=== PATIENT | female | born 1970 | race African-American/Black ===

== ENCOUNTER 2020-04-08 15:03 | Inpatient (IN) | payer OTHER ==
--- NOTE | 2020-04-08 15:21 | BHS.RME ---
Substance Use & Tx History - Substance Use History Alcohol Substance amount: 6 pack of 24 ounce beer, 1/2 pint Vodka Frequency of use: Daily Substance route: Oral Date of Last Use: 03/31/20 Cocaine-Crack Substance amount: $30 Frequency of use: More than 3 times per week Substance route: Smoking Date of Last Use: 03/30/20 Nicotine Substance amount: one pack Frequency of use: Daily Substance route: Smoking Date of Last Use: 04/08/20 - Last Treatment Date of last treatment: [facility] past 8 days Where was last treatment: Detox Physical/Psych/Mental Status - Behavior General Behavior: Increased activity (restlessness, agitation) Eye Contact: Normal - Cooperativeness Cooperativeness: Cooperative - Thinking Thought Processes: Tight Thought content: Future oriented - Physical Health Problems Is patient presently having any pain?: Yes (chronic nerve pain in both legs) Does patient presently have any injuries (include location): Yes (dog bite posterior left knee tx with antibiotics, has rx) Does patient currently have a fever: No CIWA Nausea/Vomitin-No Nausea/No Vomiting Muscle Tremors: None Anxiety: 0-No Anxiety, at Ease Agitation: 0-Normal Activity Paroxysmal Sweats: No Perspiration Orientation: 0-Oriented Tacttile Disturbances: 1-Very Mild Itch/Numbness (chronic) Auditory Disturbances: 0-None Visual Disturbances: 0-None Headache: 0-None Present CIWA-Ar Total Score: 1
[2020-04-08 17:51] VITALS: BMI 25.0
--- NOTE | 2020-04-08 18:26 | HP ---
CIWA Score Nausea/Vomitin-No Nausea/No Vomiting Muscle Tremors: None Anxiety: 0-No Anxiety, at Ease Agitation: 0-Normal Activity Paroxysmal Sweats: No Perspiration Orientation: 0-Oriented Tacttile Disturbances: 1-Very Mild Itch/Numbness (chronic) Auditory Disturbances: 0-None Visual Disturbances: 0-None Headache: 0-None Present CIWA-Ar Total Score: 1 - Admission Criteria OASAS Guidelines: Admission for Medically Managed Detox: Requires at least one of the followin. CIWA greater than 12 2. Seizures within the past 24 hours 3. Delirium tremens within the past 24 hours 4. Hallucinations within the past 24 hours 5. Acute intervention needed for co occurring medical disorder 6. Acute intervention needed for co occurring psychiatric disorder 7. Severe withdrawal that cannot be handled at a lower level of care (continued vomiting, continued diarrhea, abnormal vital signs) requiring intravenous medication and/or fluids 8. Admitting History and Physical - Past Medical History ...LMP: 03/25/20 - Smoking History Smoking history: Current every day smoker Have you smoked in the past 12 months: Yes Aproximately how many cigarettes per day: 10 Admission ROS [facility] Chief Complaint: HERE FOR REHAB FROM ALCOHOL . S/P DETOX Allergies/Adverse Reactions: Allergies Allergy/AdvReac Type Severity Reaction Status Date / Time No Known Allergies Allergy Verified 04/08/20 17:03 History of Present Illness: HERE FOR ALCOHOL, COCAINE REHAB AFTER DETOX AT [facility]. CLIENT WAS DETOXED FROM 04/01/20 TO 04/08/20 PR. CLIENT REPORTS DAILY ALCOHOL INTAKE AND INTERMITTENT USE OF COCAINE. LAST USE OF BOTH SUBSTANCES ON 03/31/20. 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 DENIES ANY CLEAN TIME IN THE PAST 12 MONTHS. LONGEST CLEAN TIME 8 YEARS RELAPSING IN 2018. CLIENT COVID TEST ON 04/02/20 NEGATIVE. SEE SCANNED DOCUMENTS. LABS APPRECIATED. LIVES ALONE, UNEMPLOYED, PENDING ASSUALT CASE- DV Exam Limitations: No Limitations - Ebola screening Have you traveled outside of the country in the last 21 days: No Have you had contact with anyone from an Ebola affected area: No Have you been sick,other than usual withdrawal symptoms: No Do you have a fever: No - Review of Systems Constitutional: Night Sweats, Changes in sleep EENT: reports: No Symptoms Reported Respiratory: reports: No Symptoms reported Cardiac: reports: No Symptoms Reported GI: reports: Constipated (LAST BM OVER 8 DAYS) : reports: No Symptoms Reported Musculoskeletal: reports: Back Pain (CHRONIC), Neck Pain (CHRONIC) Integumentary: reports: No Symptoms Reported Neuro: reports: No Symptoms reported Endocrine: reports: Other (DM) Hematology: reports: Anemia Psychiatric: reports: Orientated x3 Other Systems: Reviewed and Negative Patient History - Patient Medical History Hx Anemia: Yes Hx Asthma: No Hx Chronic Obstructive Pulmonary Disease (COPD): No Hx Cancer: No Hx Cardiac Disorders: No Hx Congestive Heart Failure: No Hx Hypertension: No Hx Hypercholesterolemia: Yes Hx Pacemaker: No HX Cerebrovascular Accident: No Hx Seizures: No Hx Dementia: No Hx Diabetes: Yes Hx Gastrointestinal Disorders: Yes (GASTRITIS) Hx Liver Disease: Yes (HEPATOMEGALY) Hx Genitourinary Disorders: No Hx Sexually Transmitted Disorders: Yes (CHLYMYDIA, SYPHYLIIS, GONORRHEA) Hx Renal Disease (ESRD): No Hx Thyroid Disease: Yes (HYPOTHYROIDISM) Hx Human Immunodeficiency Virus (HIV): No Hx Hepatitis C: No Hx Depression: Yes Hx Suicide Attempt: Yes (OVERDOSED ON PSYCH MEDICATION 2004, 2008) Hx Bipolar Disorder: Yes Hx Schizophrenia: No Other Medical History: SHIZOAFFECTIVE, - Patient Surgical History Past Surgical History: Yes Hx Neurologic Surgery: No Hx Cataract Extraction: No Hx Cardiac Surgery: No Hx Lung Surgery: No Hx Breast Surgery: No Hx Breast Biopsy: No Hx Abdominal Surgery: Yes (RIGHT INGIUNAL HERNIA REPARI AT 11 WEEKS OLD) Hx Appendectomy: Yes (1983) Hx Cholecystectomy: No Hx Genitourinary Surgery: No Hx Section: No Hx Orthopedic Surgery: Yes Anesthesia Reaction: No - PPD History Previous Implant?: Yes Documented Results: Negative w/o proof Implanted On Prior [facility] Admission?: No Date: 04/01/20 (SEE SCANNED DOCUMENTS) Results: NEG CXR PPD to be Administered?: No - Reproductive History Patient is a Female of Child Bearing Age (11 -55 yrs old): Yes Last Menstrual Period: 03/25/20 Patient : No (NEG UHCG) - Smoking Cessation Smoking history: Current every day smoker Have you smoked in the past 12 months: Yes Aproximately how many cigarettes per day: 10 Cigars Per Day: 0 Hx Chewing Tobacco Use: No Initiated information on smoking cessation: Yes 'Breaking Loose' booklet given: 04/08/20 - Substance & Tx. History Hx Alcohol Use: Yes Hx Substance Use: Yes Substance Use Type: Alcohol, Cocaine Hx Substance Use Treatment: Yes ([facility]) - Substances abused Alcohol Other (specify): BEER Substance route: Oral Frequency: Daily Amount used: 1-6 PACK 24 OZ Age of first use: 29 Date of last use: 03/31/20 Crack Substance route: Smoking Frequency: 3-6 times per week Amount used: $40 Age of first use: 29 Date of last use: 03/31/20 Admission Physical Exam S - Vital Signs Vital Signs: Vital Signs - 24 hr 04/08/20 17:50 Temperature 96.8 F L Pulse Rate 74 Respiratory 16 Rate Blood Pressure 98/58 L - Physical General Appearance: Yes: No Apparent Distress, Appropriately Dressed HEENTM: Yes: EOMI, Normocephalic, Normal Voice, TEODORO (LEFT EYE), Pharynx Normal, Other (MISSING TEETH) Respiratory: Yes: Chest Non-Tender, Lungs Clear, Normal Breath Sounds, No Respiratory Distress, No Accessory Muscle Use Neck: Yes: No masses,lesions,Nodules, Supple, Trachea in good position Breast: Yes: Breasts Symetrical Cardiology: Yes: Regular Rhythm, Regular Rate, S1, S2 Abdominal: Yes: Non Tender, Soft, Protuberent Genitourinary: Yes: Within Normal Limits Back: Yes: Decreased Range of Motion (2/2 PAIN) Musculoskeletal: Yes: full range of Motion, Gait Steady Extremities: Yes: Normal Capillary Refill, Normal Range of Motion, Non-Tender, Pedal Edema (TRACE EDEMA BLE) Neurological: Yes: Fully Oriented, Alert, Motor Strength 5/5 Integumentary: Yes: Dry, Warm Lymphatic: Yes: Within Normal Limits - Diagnostic (1) Alcohol dependence, uncomplicated Current Visit: Yes Status: Chronic (2) Cocaine dependence, uncomplicated Current Visit: Yes Status: Chronic (3) Diabetes Current Visit: Yes Status: Chronic Qualifiers: Diabetes mellitus type: type 2 (4) Neuropathy, diabetic Current Visit: Yes Status: Chronic Qualifiers: Diabetes mellitus type: type 2 (5) Nicotine dependence Current Visit: Yes Status: Chronic Qualifiers: Nicotine product type: cigarettes Substance use status: uncomplicated Qualified Code(s): F17.210 - Nicotine dependence, cigarettes, uncomplicated (6) Bipolar disorder Current Visit: Yes Status: Chronic (7) Schizoaffective disorder Current Visit: Yes Status: Chronic Qualifiers: Schizoaffective disorder type: bipolar Qualified Code(s): F25.0 - Schizoaffective disorder, bipolar type (8) HLD (hyperlipidemia) Current Visit: Yes Status: Chronic (9) Gastritis Current Visit: Yes Status: Chronic (10) Gout Current Visit: Yes Status: Chronic Qualifiers: Gout site: knee Laterality: left (11) Hepatomegaly Current Visit: Yes Status: Chronic (12) Sciatica Current Visit: Yes Status: Chronic Qualifiers: Laterality: right Qualified Code(s): M54.31 - Sciatica, right side (13) Detached retina, right Current Visit: Yes Status: Chronic (14) Cataract, right eye Current Visit: Yes Status: Chronic Cleared for Admission [facility] - Detox or Rehab Detox Regimen/Protocol: Not Applicable Claeared for Rehab Admission: Yes Breathalyzer - Breathalyzer Breathalyzer: 0 Urine Drug Screen - Test Device Lot number: [id number] Expiration date: 10/16/21 - Control Is test valid?: Yes - Results Drug screen NEGATIVE: No Urine drug screen results: BZO-Benzodiazepines Inpatient Rehab Admission - Rehab Decision to Admit Inpatient rehab admission?: Yes - Initial Determination Are CD services needed?: Yes Free of communicable disease: Yes Not in need of hospitalization: Yes - Rehab Admission Criteria Previous failed treatment: Yes Poor recovery environment: Yes Comorbidities: Yes Lacks judgement: No Patient is meeting Inpatient Rehab admission criteria:: Yes
[2020-04-08] MEDS ORDERED: MAG HYDROX/AL HYDROX/SIMETH 30 ML UNIT-DOSE CUP PO PRN (18:39)
[2020-04-08] MEDS ORDERED: MENTHOL/PHENOL 1 EACH UD MM PRN (18:39)
[2020-04-08] MEDS ORDERED: MAGNESIUM CITRATE 300 ML BOTTLE PO PRN (18:39)
[2020-04-08] MEDS ORDERED: guaiFENesin 200 MG/10 ML 10 ML UNIT-DOSE CUPS PO PRN (18:39)
[2020-04-08] MEDS ORDERED: NICOTINE POLACRILEX 2 MG GUM BUC PRN ×2 (18:39→23:54)
[2020-04-08] MEDS ORDERED: LOPERAMIDE HCL 2 MG CAPSULE PO PRN (18:39)
[2020-04-08] MEDS ORDERED: P-EPHED 60MG/TRIPROLIDI 2.5MG TABLET PO PRN (18:39)
[2020-04-08] MEDS ORDERED: MAGNESIUM HYDROX 2400MG/30ML ORAL SUSPENSION 30 ML CUP PO PRN (18:39)
[2020-04-08] MEDS ORDERED: ACETAMINOPHEN 325 MG TABLET (FP) PO PRN (18:39)
[2020-04-08] MEDS: SENNOSIDES 8.6MG TABLET (FP) PO SCH (21:59)
[2020-04-08] MEDS: DOCUSATE SODIUM 100 MG CAPSULE (FP) PO SCH (21:59)
[2020-04-08] MEDS: THIAMINE HCL 100 MG TABLET (FP) PO SCH (21:59)
[2020-04-08] MEDS: ATORVASTATIN CA 20 MG TABLET (FP) PO SCH (21:59)
[2020-04-08] MEDS ORDERED: INSULIN (LEVEMIR) 100 UNITS/ML UNITS SQ SCH (22:00)
[2020-04-08] MEDS ORDERED: PATIENT'S OWN MEDICATION (NON-FORMULARY) (Simvastatin [Simvastatin] 40 MG) PO SCH (22:00)
[2020-04-08] MEDS: MELATONIN 5 MG TABLETS PO SCH (22:05)
[2020-04-08] MEDS: ACAMPROSATE CALCIUM 333 MG TABLET.DR PO SCH (22:43)
[2020-04-08] MEDS: AMOX TR/POT CLAV 875MG/125MG TABLETS (FP) PO SCH (22:43)
[2020-04-09] MEDS: ACAMPROSATE CALCIUM 333 MG TABLET.DR PO SCH ×3 (07:10→21:34)
[2020-04-09] MEDS: metFORMIN HCL 500 MG TABLET (FP) PO SCH ×3 (07:10→16:47)
[2020-04-09] MEDS: hydrOXYzine PAMOATE 25 MG CAPSULE (FP) PO SCH ×6 (07:11→21:30)
[2020-04-09] MEDS: DOCUSATE SODIUM 100 MG CAPSULE (FP) PO SCH ×3 (07:11→21:31)
[2020-04-09] MEDS ORDERED: PT OWN MED DRAWER 7, Y5N ONE ×4 (08:49→19:13)
[2020-04-09] MEDS: ASPIRIN 81 MG CHEWABLE TABLETS PO SCH (09:38)
[2020-04-09] MEDS: AMOX TR/POT CLAV 875MG/125MG TABLETS (FP) PO SCH ×2 (09:38→21:32)
[2020-04-09] MEDS: CALCIUM 250MG/VIT-D 125 UNITS 1 COMBO TABLET PO SCH (09:39)
[2020-04-09] MEDS: PRENATAL VITAMINS W/ FOLIC ACID TABLET (FP) PO SCH (09:39)
[2020-04-09] MEDS: PANTOPRAZOLE 40 MG TABLET PO SCH (09:40)
[2020-04-09] MEDS ORDERED: NICOTINE 7 MG/24 HOURS TOPICAL PATCH TD SCH (10:00)
[2020-04-09] MEDS ORDERED: NICOTINE 14 MG/24 HOURS TOPICAL PATCH TD SCH (10:00)
--- NOTE | 2020-04-09 10:58 | EKG ---
Test Reason : Blood Pressure : / mmHG Vent. Rate : 068 BPM Atrial Rate : 068 BPM P-R Int : 148 ms QRS Dur : 084 ms QT Int : 396 ms P-R-T Axes : 073 035 041 degrees QTc Int : 421 ms NORMAL SINUS RHYTHM SEPTAL INFARCT , AGE UNDETERMINED ABNORMAL ECG NO PREVIOUS ECGS AVAILABLE Confirmed by MD Maggy, Roni ([id number]) on 04/09/2020 10:58:08 AM Referred By: Confirmed By:Roni Winter MD
[2020-04-09] MEDS: COLCHICINE 0.6 MG TAB PO SCH (11:00)
[2020-04-09] MEDS ORDERED: GABAPENTIN 100 MG CAPSULE PO SCH (14:00)
--- NOTE | 2020-04-09 15:18 | PN ---
BHS Progress Note Note: Patient stated that she is on Gabapentin 600m BID for neuropathic pain. Confirmed with [facility].
[2020-04-09] MEDS: THIAMINE HCL 100 MG TABLET (FP) PO SCH (21:30)
[2020-04-09] MEDS: ATORVASTATIN CA 20 MG TABLET (FP) PO SCH (21:31)
[2020-04-09] MEDS: SENNOSIDES 8.6MG TABLET (FP) PO SCH (21:31)
[2020-04-09] MEDS: BACITRACIN 0.9 GM PACKET TP SCH (21:33)
[2020-04-09] MEDS: MELATONIN 5 MG TABLETS PO SCH (21:37)
[2020-04-09] MEDS: GABAPENTIN 300 MG CAPSULE PO SCH (21:38)
[2020-04-09] MEDS ORDERED: INSULIN (NOVOLOG) ASPART 100 UNITS/ML 10ML VIAL ONE (23:07)
[2020-04-09] MEDS ORDERED: INSULIN (LEVEMIR) 100 UNITS/ML UNITS SQ ONE (23:07)
[2020-04-09] MEDS: INSULIN (LEVEMIR) 100 UNITS/ML UNITS SQ SCH (23:39)
[2020-04-10] MEDS: DOCUSATE SODIUM 100 MG CAPSULE (FP) PO SCH ×3 (06:39→21:16)
[2020-04-10] MEDS: metFORMIN HCL 500 MG TABLET (FP) PO SCH ×2 (06:39→16:48)
[2020-04-10] MEDS: ACAMPROSATE CALCIUM 333 MG TABLET.DR PO SCH ×3 (06:39→21:21)
[2020-04-10] MEDS: hydrOXYzine PAMOATE 25 MG CAPSULE (FP) PO SCH ×5 (06:39→21:16)
[2020-04-10] MEDS: ASPIRIN 81 MG CHEWABLE TABLETS PO SCH (09:36)
[2020-04-10] MEDS: PANTOPRAZOLE 40 MG TABLET PO SCH (09:37)
[2020-04-10] MEDS: GABAPENTIN 300 MG CAPSULE PO SCH ×2 (09:37→21:16)
[2020-04-10] MEDS: AMOX TR/POT CLAV 875MG/125MG TABLETS (FP) PO SCH ×2 (09:37→21:20)
[2020-04-10] MEDS: COLCHICINE 0.6 MG TAB PO SCH (09:38)
[2020-04-10] MEDS: CALCIUM 250MG/VIT-D 125 UNITS 1 COMBO TABLET PO SCH (09:38)
[2020-04-10] MEDS: BACITRACIN 0.9 GM PACKET TP SCH ×2 (09:38→21:21)
[2020-04-10] MEDS: PRENATAL VITAMINS W/ FOLIC ACID TABLET (FP) PO SCH (09:39)
[2020-04-10] MEDS ORDERED: PT OWN MED DRAWER 7, Y5N ONE ×5 (13:16→23:23)
--- NOTE | 2020-04-10 14:41 | CONSULT ---
[facility] Psychiatric Consult - Data Date of interview: 04/10/20 Admission source: [facility] Identifying data: Ms Dutta is a 49 years old single Black female, mothr of a 27 years old daughter, unemployed receiving public assistance, living in [facility] referred from [facility] on 04/08/20 for inpatient rehabilitation treatment for alcohol and cocaine Substance Abuse History: Reports history of alcohol and crack cocaine use. Refer to addiction counselor's summary for further information Medical History: Significant for anemia, dyslipidemia, gastritis, hypothyroidism, history of treatment for chlamydia, syphilis, gonorrhea, appendectomy in 1983 and right inguinal hernia repair at 9 weeks old. Psychiatric History: This is patient's first admission to this facility. She reports that her first psychiatric contact occured in 1996 when she was diagnosed with MDD with psychotic features after evaluation by a psychiatrist she saw through her employer [employer]. She said that she did not follow through. In 2000, she was diagnosed with Bipolar/Schizophrenia by a psychiatrist at [facility]/ at [address] [place] [address] between & [facility] in [facility]. She said that she was tried on different medications including Depakote, Risperdal, Zyprexa etc. Reports two previous psychiatric hospitalizations at [facility] in 2004 for a suicidal attempt via overdose and 2008 at [facility] for psychosis. She is not currently affiliated with any OPD care.Her last psychiaric treatment was during her recent admission to detox at [facility] facility. She was discharged on [place] 150 mg/qid, Latuda 20 mg/hs, Remeron 15 mg/hs. Reports one pevious suicidal attempt via taking medications as mentioned before. [facility], denies experiencing psychotic, manic symptoms, S/H ideations. However, she is somewhat irritable, reports feeling depressedand sleeping poorly Mental Status Exam - Mental Status Exam Alert and Oriented to: Time, Place, Person Cognitive Function: Fair Patient Appearance: Well Groomed Mood: Depressed, Irritable Affect: Appropriate Patient Behavior: Cooperative Speech Pattern: Clear Voice Loudness: Normal Thought Process: Intact Hallucinations: Denies Suicidal Ideation: Denies Homicidal Ideation: Denies Insight/Judgement: Fair Sleep: Poorly Appetite: Good Muscle strength/Tone: Normal Gait/Station: Normal Psychiatric Findings - Problem List ([place] 1, 2,3) (1) Bipolar disorder Current Visit: Yes Status: Chronic (2) Schizoaffective disorder Current Visit: Yes Status: Ruled-out (3) Substance induced mood disorder Current Visit: Yes Status: Acute (4) Substance-induced sleep disorder Current Visit: Yes Status: Acute (5) Alcohol dependence Current Visit: Yes Status: Acute (6) Cocaine dependence Current Visit: Yes Status: Acute (7) Nicotine dependence Current Visit: Yes Status: Chronic Qualifiers: Nicotine product type: cigarettes Substance use status: uncomplicated Qualified Code(s): F17.210 - Nicotine dependence, cigarettes, uncomplicated (8) Diabetes Current Visit: Yes Status: Chronic Qualifiers: Diabetes mellitus type: type 2 (9) Gastritis Current Visit: Yes Status: Chronic (10) Gout Current Visit: Yes Status: Chronic Qualifiers: Gout site: knee Laterality: left (11) HLD (hyperlipidemia) Current Visit: Yes Status: Chronic (12) Neuropathy, diabetic Current Visit: Yes Status: Chronic Qualifiers: Diabetes mellitus type: type 2 (13) Sciatica Current Visit: Yes Status: Chronic Qualifiers: Laterality: right Qualified Code(s): M54.31 - Sciatica, right side (14) Cataract, right eye Current Visit: Yes Status: Chronic (15) Detached retina, right Current Visit: Yes Status: Chronic - Initial Treatment Plan Initial Treatment Plan: 1) Continue Latuda 20 mg po HS and Remeron 15 mg po HS. 2) Start [place] 300 mg o BID. 3) [place] serum leval on 04/11/20. 4) Continue inpatient rehabilitation
[2020-04-10] MEDS: LURASIDONE HCL 20 MG TABLET PO SCH (16:03)
[2020-04-10] MEDS: IBUPROFEN 400 MG TABLET (FP) PO PRN (16:50)
[2020-04-10] MEDS: INSULIN SLIDING SCALE (NOVOLOG) 1 VIAL SQ SCH ×2 (16:56→21:26)
[2020-04-10] MEDS ORDERED: INSULIN (NOVOLOG) ASPART 100 UNITS/ML 10ML VIAL ONE ×2 (16:56→23:21)
[2020-04-10] MEDS: THIAMINE HCL 100 MG TABLET (FP) PO SCH (21:15)
[2020-04-10] MEDS: SENNOSIDES 8.6MG TABLET (FP) PO SCH (21:16)
[2020-04-10] MEDS: ATORVASTATIN CA 20 MG TABLET (FP) PO SCH (21:16)
[2020-04-10] MEDS: MIRTAZAPINE 15 MG TABLET (FP) PO SCH (21:18)
[2020-04-10] MEDS: MELATONIN 5 MG TABLETS PO SCH (21:19)
[2020-04-10] MEDS: LITHIUM CARBONATE 300 MG CAPSULE (FP) PO SCH (21:20)
[2020-04-10] MEDS: INSULIN (LEVEMIR) 100 UNITS/ML UNITS SQ SCH (21:23)
[2020-04-11] MEDS ORDERED: PT OWN MED DRAWER 7, Y5N ONE ×4 (04:12→20:12)
[2020-04-11] MEDS: ACAMPROSATE CALCIUM 333 MG TABLET.DR PO SCH ×3 (06:34→21:11)
[2020-04-11] MEDS: metFORMIN HCL 500 MG TABLET (FP) PO SCH ×2 (06:35→16:43)
[2020-04-11] MEDS: INSULIN SLIDING SCALE (NOVOLOG) 1 VIAL SQ SCH ×4 (06:35→21:17)
[2020-04-11] MEDS: DOCUSATE SODIUM 100 MG CAPSULE (FP) PO SCH ×3 (06:35→21:10)
[2020-04-11] MEDS: hydrOXYzine PAMOATE 25 MG CAPSULE (FP) PO SCH ×5 (06:35→21:10)
[2020-04-11] MEDS: ASPIRIN 81 MG CHEWABLE TABLETS PO SCH (09:47)
[2020-04-11] MEDS: GABAPENTIN 300 MG CAPSULE PO SCH (09:47)
[2020-04-11] MEDS: PANTOPRAZOLE 40 MG TABLET PO SCH (09:47)
[2020-04-11] MEDS: LITHIUM CARBONATE 300 MG CAPSULE (FP) PO SCH ×2 (09:48→21:10)
[2020-04-11] MEDS: CALCIUM 250MG/VIT-D 125 UNITS 1 COMBO TABLET PO SCH (09:48)
[2020-04-11] MEDS: LURASIDONE HCL 20 MG TABLET PO SCH (09:48)
[2020-04-11] MEDS: PRENATAL VITAMINS W/ FOLIC ACID TABLET (FP) PO SCH (09:49)
[2020-04-11] MEDS: AMOX TR/POT CLAV 875MG/125MG TABLETS (FP) PO SCH ×2 (09:49→21:12)
[2020-04-11] MEDS: COLCHICINE 0.6 MG TAB PO SCH (09:49)
[2020-04-11] MEDS: BACITRACIN 0.9 GM PACKET TP SCH ×2 (09:49→21:11)
[2020-04-11 10:31] LABS: BASO % 1.6 % (0-2.0); EOS % 3.3 % (0-4.5); HEMATOCRIT 35.1 % (32.4-45.2); HEMOGLOBIN 11.8 GM/dL (10.7-15.3); LYMPH % 38.3 % (8-40); MCH 32.8 pg (25.7-33.7); MCHC 33.7 g/dl (32.0-36.0); MEAN CELL VOLUME 97.4 fl (80-96); MEAN PLT VOLUME 8.6 fl (7.5-11.1); MONO % 10.8 % (3.8-10.2); PLATELET COUNT 354 K/MM3 (134-434); RDW 12.1 % (11.6-15.6); WHITE BLOOD COUNT 5.5 K/mm3 (4.0-10.0)
[2020-04-11 10:33] LABS: EPI CELLS 10 /uL (0-25.1); HYALINE CASTS 2 /uL (0-3.1); URINE APPEARANCE CLEAR; URINE BACTERIA 24 /uL (0-1359); URINE BILIRUBIN NEGATIVE (NEGATIVE); URINE COLOR YELLOW; URINE GLUCOSE (UA) NEGATIVE (NEGATIVE); URINE KETONE NEGATIVE (NEGATIVE); URINE LEUK ESTERASE 2+ (NEGATIVE); URINE NITRITE NEGATIVE (NEGATIVE); URINE PROTEIN NEGATIVE (NEGATIVE); URINE RBC 33 /uL (0-23.9); URINE UROBILINOGEN 0.2 mg/dL (0.2-1.0); URINE WBC 215 /uL (0-25.8)
[2020-04-11 10:36] LABS: ALBUMIN 3.3 g/dl (3.4-5.0); BILIRUBIN,TOTAL 0.2 mg/dL (0.2-1); BLOOD UREA NITROGEN 15.5 mg/dL (7-18); CALCIUM 9.6 mg/dL (8.5-10.1); CREATININE 0.6 mg/dL (0.55-1.3); POTASSIUM 4.5 mmol/L (3.5-5.1); TOT PROT 7.1 g/dl (6.4-8.2)
[2020-04-11] MEDS ORDERED: INSULIN (NOVOLOG) ASPART 100 UNITS/ML 10ML VIAL ONE ×2 (16:46→22:59)
[2020-04-11] MEDS: IBUPROFEN 400 MG TABLET (FP) PO PRN (16:48)
[2020-04-11] MEDS ORDERED: GABAPENTIN 300 MG CAPSULE PO SCH (18:15)
[2020-04-11] MEDS: THIAMINE HCL 100 MG TABLET (FP) PO SCH (21:10)
[2020-04-11] MEDS: SENNOSIDES 8.6MG TABLET (FP) PO SCH (21:10)
[2020-04-11] MEDS: ATORVASTATIN CA 20 MG TABLET (FP) PO SCH (21:10)
[2020-04-11] MEDS: MIRTAZAPINE 15 MG TABLET (FP) PO SCH (21:10)
[2020-04-11] MEDS: MELATONIN 5 MG TABLETS PO SCH (21:12)
[2020-04-11] MEDS: INSULIN (LEVEMIR) 100 UNITS/ML UNITS SQ SCH (21:14)
[2020-04-12] MEDS: INSULIN SLIDING SCALE (NOVOLOG) 1 VIAL SQ SCH ×4 (06:46→21:38)
[2020-04-12] MEDS: metFORMIN HCL 500 MG TABLET (FP) PO SCH ×2 (06:47→16:38)
[2020-04-12] MEDS: ACAMPROSATE CALCIUM 333 MG TABLET.DR PO SCH ×3 (06:47→21:37)
[2020-04-12] MEDS: DOCUSATE SODIUM 100 MG CAPSULE (FP) PO SCH ×3 (06:47→21:30)
[2020-04-12] MEDS: hydrOXYzine PAMOATE 25 MG CAPSULE (FP) PO SCH ×5 (06:47→21:31)
[2020-04-12] MEDS: ASPIRIN 81 MG CHEWABLE TABLETS PO SCH (09:46)
[2020-04-12] MEDS: BACITRACIN 0.9 GM PACKET TP SCH ×2 (09:47→22:19)
[2020-04-12] MEDS: LITHIUM CARBONATE 300 MG CAPSULE (FP) PO SCH ×2 (09:48→21:37)
[2020-04-12] MEDS: COLCHICINE 0.6 MG TAB PO SCH (09:48)
[2020-04-12] MEDS: LURASIDONE HCL 20 MG TABLET PO SCH (09:48)
[2020-04-12] MEDS: PANTOPRAZOLE 40 MG TABLET PO SCH (09:49)
[2020-04-12] MEDS: CALCIUM 250MG/VIT-D 125 UNITS 1 COMBO TABLET PO SCH (09:49)
[2020-04-12] MEDS: PRENATAL VITAMINS W/ FOLIC ACID TABLET (FP) PO SCH (09:49)
[2020-04-12] MEDS ORDERED: GABAPENTIN 300 MG CAPSULE PO SCH (10:00)
[2020-04-12] MEDS ORDERED: BISACODYL 5 MG TABLET.DR (FP) PO PRN (10:28)
--- NOTE | 2020-04-12 10:34 | PN ---
[facility] Progress Note Note: Patient requests to have Bisocdyl PO PRN for relief of constipation. Patient already prescribed Colace and Senna for relief of constipation; however, she reports history of chronic constipation and that she has consulted GI specialist in past and that she takes all three aforementioned medications on outpatient basis. She denies abdominal pain. Patient advised to increase daily oral water intake and to consult [facility] / GI Specialist again for follow-up evaluation for chronic constipation after discharge from Rehab. Patient verbalized understanding of recommendation. Devante Chawla NP
--- NOTE | 2020-04-12 11:02 | PN ---
[facility] Progress Note Note: Results of UA collected on 04/11/2020 noted. Leuk. Esterase: 2+ Blood: 1+ Nitrate: Negative WBC: 215 RBC: 33 Patient denies any unusual urinary complaints (burning, pain, frequency, urgency, hesitancy, visualization of blood in urine). Will re-check UA tomorrow AM to see if any change. Patient advised to increase daily oral water intake in interim. Devante Chawla NP
[2020-04-12] MEDS ORDERED: PT OWN MED DRAWER 7, Y5N ONE ×3 (16:37→22:23)
[2020-04-12] MEDS ORDERED: INSULIN (NOVOLOG) ASPART 100 UNITS/ML 10ML VIAL ONE (16:38)
[2020-04-12 17:44] LABS: EPI CELLS 8 /uL (0-25.1); HYALINE CASTS 0 /uL (0-3.1); URINE APPEARANCE CLOUDY; URINE BACTERIA 11 /uL (0-1359); URINE BILIRUBIN NEGATIVE (NEGATIVE); URINE COLOR YELLOW; URINE GLUCOSE (UA) TRACE (NEGATIVE); URINE KETONE NEGATIVE (NEGATIVE); URINE LEUK ESTERASE TRACE (NEGATIVE); URINE NITRITE NEGATIVE (NEGATIVE); URINE PROTEIN NEGATIVE (NEGATIVE); URINE RBC 1 /uL (0-23.9); URINE UROBILINOGEN 0.2 mg/dL (0.2-1.0); URINE WBC 24 /uL (0-25.8)
[2020-04-12] MEDS: GABAPENTIN 300 MG CAPSULE PO SCH (18:38)
[2020-04-12] MEDS: ATORVASTATIN CA 20 MG TABLET (FP) PO SCH (21:31)
[2020-04-12] MEDS: SENNOSIDES 8.6MG TABLET (FP) PO SCH (21:31)
[2020-04-12] MEDS: INSULIN (LEVEMIR) 100 UNITS/ML UNITS SQ SCH (21:31)
[2020-04-12] MEDS: MIRTAZAPINE 15 MG TABLET (FP) PO SCH (21:31)
[2020-04-12] MEDS: MELATONIN 5 MG TABLETS PO SCH (21:38)
[2020-04-12] MEDS: THIAMINE HCL 100 MG TABLET (FP) PO SCH (22:19)
[2020-04-13] MEDS: GABAPENTIN 300 MG CAPSULE PO SCH ×2 (06:51→18:05)
[2020-04-13] MEDS: DOCUSATE SODIUM 100 MG CAPSULE (FP) PO SCH ×3 (06:51→21:54)
[2020-04-13] MEDS: metFORMIN HCL 500 MG TABLET (FP) PO SCH ×2 (06:51→17:04)
[2020-04-13] MEDS: ACAMPROSATE CALCIUM 333 MG TABLET.DR PO SCH ×3 (06:51→21:54)
[2020-04-13] MEDS: hydrOXYzine PAMOATE 25 MG CAPSULE (FP) PO SCH ×5 (06:51→21:58)
[2020-04-13] MEDS: INSULIN SLIDING SCALE (NOVOLOG) 1 VIAL SQ SCH ×4 (06:54→22:00)
[2020-04-13] MEDS ORDERED: INSULIN (NOVOLOG) ASPART 100 UNITS/ML 10ML VIAL ONE ×5 (06:56→22:01)
[2020-04-13] MEDS: BISACODYL 5 MG TABLET.DR (FP) PO PRN (07:35)
[2020-04-13] MEDS ORDERED: PT OWN MED DRAWER 7, Y5N ONE ×2 (08:14→11:29)
[2020-04-13] MEDS: ASPIRIN 81 MG CHEWABLE TABLETS PO SCH (09:56)
[2020-04-13] MEDS: BACITRACIN 0.9 GM PACKET TP SCH ×2 (09:56→22:56)
[2020-04-13] MEDS: COLCHICINE 0.6 MG TAB PO SCH (09:59)
[2020-04-13] MEDS: CALCIUM 250MG/VIT-D 125 UNITS 1 COMBO TABLET PO SCH (09:59)
[2020-04-13] MEDS: LURASIDONE HCL 20 MG TABLET PO SCH (09:59)
[2020-04-13] MEDS: PRENATAL VITAMINS W/ FOLIC ACID TABLET (FP) PO SCH (10:00)
[2020-04-13] MEDS: PANTOPRAZOLE 40 MG TABLET PO SCH (10:00)
[2020-04-13] MEDS: LITHIUM CARBONATE 300 MG CAPSULE (FP) PO SCH ×2 (10:00→21:59)
[2020-04-13] MEDS: INSULIN (LEVEMIR) 100 UNITS/ML UNITS SQ SCH (21:52)
[2020-04-13] MEDS: THIAMINE HCL 100 MG TABLET (FP) PO SCH (21:54)
[2020-04-13] MEDS: SENNOSIDES 8.6MG TABLET (FP) PO SCH (21:54)
[2020-04-13] MEDS: ATORVASTATIN CA 20 MG TABLET (FP) PO SCH (21:54)
[2020-04-13] MEDS: MIRTAZAPINE 15 MG TABLET (FP) PO SCH (21:55)
[2020-04-13] MEDS: MELATONIN 5 MG TABLETS PO SCH (21:55)
[2020-04-14] MEDS: GABAPENTIN 300 MG CAPSULE PO SCH ×2 (07:17→18:15)
[2020-04-14] MEDS: metFORMIN HCL 500 MG TABLET (FP) PO SCH ×2 (07:17→16:35)
[2020-04-14] MEDS: hydrOXYzine PAMOATE 25 MG CAPSULE (FP) PO SCH ×2 (07:18→10:09)
[2020-04-14] MEDS: DOCUSATE SODIUM 100 MG CAPSULE (FP) PO SCH ×3 (07:18→21:22)
[2020-04-14] MEDS: ACAMPROSATE CALCIUM 333 MG TABLET.DR PO SCH (07:19)
[2020-04-14] MEDS: BISACODYL 5 MG TABLET.DR (FP) PO PRN ×2 (07:19→21:23)
[2020-04-14] MEDS: INSULIN SLIDING SCALE (NOVOLOG) 1 VIAL SQ SCH ×4 (07:19→21:26)
[2020-04-14] MEDS ORDERED: PT OWN MED DRAWER 7, Y5N ONE (08:22)
[2020-04-14] MEDS: ASPIRIN 81 MG CHEWABLE TABLETS PO SCH (10:09)
[2020-04-14] MEDS: PRENATAL VITAMINS W/ FOLIC ACID TABLET (FP) PO SCH (10:09)
[2020-04-14] MEDS: PANTOPRAZOLE 40 MG TABLET PO SCH (10:09)
[2020-04-14] MEDS: BACITRACIN 0.9 GM PACKET TP SCH ×2 (10:10→21:22)
[2020-04-14] MEDS: COLCHICINE 0.6 MG TAB PO SCH (10:10)
[2020-04-14] MEDS: CALCIUM 250MG/VIT-D 125 UNITS 1 COMBO TABLET PO SCH (10:11)
[2020-04-14] MEDS: LITHIUM CARBONATE 300 MG CAPSULE (FP) PO SCH ×2 (10:11→21:24)
[2020-04-14] MEDS: LURASIDONE HCL 20 MG TABLET PO SCH (10:12)
--- NOTE | 2020-04-14 11:38 | PN ---
[facility] Progress Note Note: Vital Signs Temperature 97.6 F 04/14/20 07:07 Pulse Rate 67 04/14/20 07:07 Respiratory Rate 16 04/14/20 07:07 Blood Pressure 121/77 04/14/20 07:07 O2 Sat by Pulse Oximetry (%) 100 04/14/20 07:07 Laboratory Tests 04/08/20 04/08/20 04/09/20 17:08 21:58 06:55 WBC RBC Hgb Hct MCV MCH MCHC RDW Plt Count MPV Absolute Neuts (auto) Neutrophils % Lymphocytes % Monocytes % Eosinophils % Basophils % Nucleated RBC % Sodium Potassium Chloride Carbon Dioxide Anion Gap BUN Creatinine Est GFR (CKD-EPI)AfAm Est GFR (CKD-EPI)NonAf POC Glucometer 319 50 Random Glucose Calcium Total Bilirubin AST ALT Alkaline Phosphatase Total Protein Albumin Urine Color Urine Appearance Urine pH Ur Specific [place] Urine Protein Urine Glucose (UA) Urine Ketones Urine Blood Urine Nitrite Urine Bilirubin Urine Urobilinogen Ur Leukocyte Esterase Urine WBC (Auto) Urine RBC (Auto) Urine Casts (Auto) U Epithel Cells (Auto) Urine Bacteria (Auto) POC Urine HCG, Qual Negative [place] Syphilis Serology Hep C Ab Diagnostic HIV Ag/Ab Combo Qual HIV-1 Antibody HIV Ag/Ab Interpret HIV-2 Antibody HIV 1&2 Ag/Ab, 4th Gen HIV 1&2 Ab Final Interp 04/09/20 04/09/20 04/09/20 07:00 07:43 08:00 WBC RBC Hgb Hct MCV MCH MCHC RDW Plt Count MPV Absolute Neuts (auto) Neutrophils % Lymphocytes % Monocytes % Eosinophils % Basophils % Nucleated RBC % Sodium Potassium Chloride Carbon Dioxide Anion Gap BUN Creatinine Est GFR (CKD-EPI)AfAm Est GFR (CKD-EPI)NonAf POC Glucometer 177 Random Glucose Calcium Total Bilirubin AST ALT Alkaline Phosphatase Total Protein Albumin Urine Color Urine Appearance Urine pH Ur Specific [place] Urine Protein Urine Glucose (UA) Urine Ketones Urine Blood Urine Nitrite Urine Bilirubin Urine Urobilinogen Ur Leukocyte Esterase Urine WBC (Auto) Urine RBC (Auto) Urine Casts (Auto) U Epithel Cells (Auto) Urine Bacteria (Auto) POC Urine HCG, Qual [place] Syphilis Serology Hep C Ab Diagnostic HIV Ag/Ab Combo Qual Negative HIV-1 Antibody Cancelled HIV Ag/Ab Interpret Cancelled HIV-2 Antibody Cancelled HIV 1&2 Ag/Ab, 4th Gen Cancelled HIV 1&2 Ab Final Interp Cancelled 04/09/20 04/09/20 04/09/20 11:47 16:45 21:36 WBC RBC Hgb Hct MCV MCH MCHC RDW Plt Count MPV Absolute Neuts (auto) Neutrophils % Lymphocytes % Monocytes % Eosinophils % Basophils % Nucleated RBC % Sodium Potassium Chloride Carbon Dioxide Anion Gap BUN Creatinine Est GFR (CKD-EPI)AfAm Est GFR (CKD-EPI)NonAf POC Glucometer 187 186 266 Random Glucose Calcium Total Bilirubin AST ALT Alkaline Phosphatase Total Protein Albumin Urine Color Urine Appearance Urine pH Ur Specific [place] Urine Protein Urine Glucose (UA) Urine Ketones Urine Blood Urine Nitrite Urine Bilirubin Urine Urobilinogen Ur Leukocyte Esterase Urine WBC (Auto) Urine RBC (Auto) Urine Casts (Auto) U Epithel Cells (Auto) Urine Bacteria (Auto) POC Urine HCG, Qual [place] Syphilis Serology Hep C Ab Diagnostic HIV Ag/Ab Combo Qual HIV-1 Antibody HIV Ag/Ab Interpret HIV-2 Antibody HIV 1&2 Ag/Ab, 4th Gen HIV 1&2 Ab Final Interp 04/10/20 04/10/20 04/10/20 06:38 08:00 08:00 WBC RBC Hgb Hct MCV MCH MCHC RDW Plt Count MPV Absolute Neuts (auto) Neutrophils % Lymphocytes % Monocytes % Eosinophils % Basophils % Nucleated RBC % Sodium Potassium Chloride Carbon Dioxide Anion Gap BUN Creatinine Est GFR (CKD-EPI)AfAm Est GFR (CKD-EPI)NonAf POC Glucometer 112 Random Glucose Calcium Total Bilirubin AST ALT Alkaline Phosphatase Total Protein Albumin Urine Color Urine Appearance Urine pH Ur Specific [place] Urine Protein Urine Glucose (UA) Urine Ketones Urine Blood Urine Nitrite Urine Bilirubin Urine Urobilinogen Ur Leukocyte Esterase Urine WBC (Auto) Urine RBC (Auto) Urine Casts (Auto) U Epithel Cells (Auto) Urine Bacteria (Auto) POC Urine HCG, Qual [place] Syphilis Serology Non-reactive Hep C Ab Diagnostic 0.1 HIV Ag/Ab Combo Qual HIV-1 Antibody HIV Ag/Ab Interpret HIV-2 Antibody HIV 1&2 Ag/Ab, 4th Gen HIV 1&2 Ab Final Interp 04/10/20 04/10/20 04/10/20 11:54 16:47 21:24 WBC RBC Hgb Hct MCV MCH MCHC RDW Plt Count MPV Absolute Neuts (auto) Neutrophils % Lymphocytes % Monocytes % Eosinophils % Basophils % Nucleated RBC % Sodium Potassium Chloride Carbon Dioxide Anion Gap BUN Creatinine Est GFR (CKD-EPI)AfAm Est GFR (CKD-EPI)NonAf POC Glucometer 162 227 204 Random Glucose Calcium Total Bilirubin AST ALT Alkaline Phosphatase Total Protein Albumin Urine Color Urine Appearance Urine pH Ur Specific [place] Urine Protein Urine Glucose (UA) Urine Ketones Urine Blood Urine Nitrite Urine Bilirubin Urine Urobilinogen Ur Leukocyte Esterase Urine WBC (Auto) Urine RBC (Auto) Urine Casts (Auto) U Epithel Cells (Auto) Urine Bacteria (Auto) POC Urine HCG, Qual [place] Syphilis Serology Hep C Ab Diagnostic HIV Ag/Ab Combo Qual HIV-1 Antibody HIV Ag/Ab Interpret HIV-2 Antibody HIV 1&2 Ag/Ab, 4th Gen HIV 1&2 Ab Final Interp 04/11/20 04/11/20 04/11/20 06:33 07:35 07:35 WBC 5.5 RBC 3.60 Hgb 11.8 Hct 35.1 MCV 97.4 H MCH 32.8 MCHC 33.7 RDW 12.1 Plt Count 354 MPV 8.6 Absolute Neuts (auto) 2.5 Neutrophils % 46.0 Lymphocytes % 38.3 Monocytes % 10.8 H Eosinophils % 3.3 Basophils % 1.6 Nucleated RBC % 0 Sodium 138 Potassium 4.5 Chloride 106 Carbon Dioxide 28 Anion Gap 5 L BUN 15.5 Creatinine 0.6 Est GFR (CKD-EPI)AfAm 124.92 Est GFR (CKD-EPI)NonAf 107.78 POC Glucometer 96 Random Glucose 84 Calcium 9.6 Total Bilirubin 0.2 AST 25 ALT 33 Alkaline Phosphatase 57 Total Protein 7.1 Albumin 3.3 L Urine Color Urine Appearance Urine pH Ur Specific [place] Urine Protein Urine Glucose (UA) Urine Ketones Urine Blood Urine Nitrite Urine Bilirubin Urine Urobilinogen Ur Leukocyte Esterase Urine WBC (Auto) Urine RBC (Auto) Urine Casts (Auto) U Epithel Cells (Auto) Urine Bacteria (Auto) POC Urine HCG, Qual [place] Syphilis Serology Hep C Ab Diagnostic HIV Ag/Ab Combo Qual HIV-1 Antibody HIV Ag/Ab Interpret HIV-2 Antibody HIV 1&2 Ag/Ab, 4th Gen HIV 1&2 Ab Final Interp 04/11/20 04/11/20 04/11/20 07:50 08:50 12:03 WBC RBC Hgb Hct MCV MCH MCHC RDW Plt Count MPV Absolute Neuts (auto) Neutrophils % Lymphocytes % Monocytes % Eosinophils % Basophils % Nucleated RBC % Sodium Potassium Chloride Carbon Dioxide Anion Gap BUN Creatinine Est GFR (CKD-EPI)AfAm Est GFR (CKD-EPI)NonAf POC Glucometer 161 Random Glucose Calcium Total Bilirubin AST ALT Alkaline Phosphatase Total Protein Albumin Urine Color Yellow Urine Appearance Clear Urine pH 5.0 Ur Specific [place] 1.011 Urine Protein Negative Urine Glucose (UA) Negative Urine Ketones Negative Urine Blood 1+ H Urine Nitrite Negative Urine Bilirubin Negative Urine Urobilinogen 0.2 Ur Leukocyte Esterase 2+ H Urine WBC (Auto) 215 Urine RBC (Auto) 33 Urine Casts (Auto) 2 U Epithel Cells (Auto) 10 Urine Bacteria (Auto) 24 POC Urine HCG, Qual [place] 0.3 L Syphilis Serology Hep C Ab Diagnostic HIV Ag/Ab Combo Qual HIV-1 Antibody HIV Ag/Ab Interpret HIV-2 Antibody HIV 1&2 Ag/Ab, 4th Gen HIV 1&2 Ab Final Interp 04/11/20 04/11/20 04/12/20 16:43 20:31 06:46 WBC RBC Hgb Hct MCV MCH MCHC RDW Plt Count MPV Absolute Neuts (auto) Neutrophils % Lymphocytes % Monocytes % Eosinophils % Basophils % Nucleated RBC % Sodium Potassium Chloride Carbon Dioxide Anion Gap BUN Creatinine Est GFR (CKD-EPI)AfAm Est GFR (CKD-EPI)NonAf POC Glucometer 225 243 182 Random Glucose Calcium Total Bilirubin AST ALT Alkaline Phosphatase Total Protein Albumin Urine Color Urine Appearance Urine pH Ur Specific [place] Urine Protein Urine Glucose (UA) Urine Ketones Urine Blood Urine Nitrite Urine Bilirubin Urine Urobilinogen Ur Leukocyte Esterase Urine WBC (Auto) Urine RBC (Auto) Urine Casts (Auto) U Epithel Cells (Auto) Urine Bacteria (Auto) POC Urine HCG, Qual [place] Syphilis Serology Hep C Ab Diagnostic HIV Ag/Ab Combo Qual HIV-1 Antibody HIV Ag/Ab Interpret HIV-2 Antibody HIV 1&2 Ag/Ab, 4th Gen HIV 1&2 Ab Final Interp 04/12/20 04/12/20 04/12/20 11:05 11:33 16:35 WBC RBC Hgb Hct MCV MCH MCHC RDW Plt Count MPV Absolute Neuts (auto) Neutrophils % Lymphocytes % Monocytes % Eosinophils % Basophils % Nucleated RBC % Sodium Potassium Chloride Carbon Dioxide Anion Gap BUN Creatinine Est GFR (CKD-EPI)AfAm Est GFR (CKD-EPI)NonAf POC Glucometer 189 209 Random Glucose Calcium Total Bilirubin AST ALT Alkaline Phosphatase Total Protein Albumin Urine Color Yellow Urine Appearance Cloudy Urine pH 7.0 D Ur Specific [place]y 1.003 L Urine Protein Negative Urine Glucose (UA) Trace Urine Ketones Negative Urine Blood Negative Urine Nitrite Negative Urine Bilirubin Negative Urine Urobilinogen 0.2 Ur Leukocyte Esterase Trace Urine WBC (Auto) 24 Urine RBC (Auto) 1 Urine Casts (Auto) 0 U Epithel Cells (Auto) 8 Urine Bacteria (Auto) 11 POC Urine HCG, Qual [place] Syphilis Serology Hep C Ab Diagnostic HIV Ag/Ab Combo Qual HIV-1 Antibody HIV Ag/Ab Interpret HIV-2 Antibody HIV 1&2 Ag/Ab, 4th Gen HIV 1&2 Ab Final Interp 04/12/20 04/13/20 04/13/20 21:33 06:49 11:59 WBC RBC Hgb Hct MCV MCH MCHC RDW Plt Count MPV Absolute Neuts (auto) Neutrophils % Lymphocytes % Monocytes % Eosinophils % Basophils % Nucleated RBC % Sodium Potassium Chloride Carbon Dioxide Anion Gap BUN Creatinine Est GFR (CKD-EPI)AfAm Est GFR (CKD-EPI)NonAf POC Glucometer 293 238 226 Random Glucose Calcium Total Bilirubin AST ALT Alkaline Phosphatase Total Protein Albumin Urine Color Urine Appearance Urine pH Ur Specific [place] Urine Protein Urine Glucose (UA) Urine Ketones Urine Blood Urine Nitrite Urine Bilirubin Urine Urobilinogen Ur Leukocyte Esterase Urine WBC (Auto) Urine RBC (Auto) Urine Casts (Auto) U Epithel Cells (Auto) Urine Bacteria (Auto) POC Urine HCG, Qual [place] Syphilis Serology Hep C Ab Diagnostic HIV Ag/Ab Combo Qual HIV-1 Antibody HIV Ag/Ab Interpret HIV-2 Antibody HIV 1&2 Ag/Ab, 4th Gen HIV 1&2 Ab Final Interp 04/13/20 04/13/20 04/14/20 17:03 20:27 07:15 WBC RBC Hgb Hct MCV MCH MCHC RDW Plt Count MPV Absolute Neuts (auto) Neutrophils % Lymphocytes % Monocytes % Eosinophils % Basophils % Nucleated RBC % Sodium Potassium Chloride Carbon Dioxide Anion Gap BUN Creatinine Est GFR (CKD-EPI)AfAm Est GFR (CKD-EPI)NonAf POC Glucometer 222 227 127 Random Glucose Calcium Total Bilirubin AST ALT Alkaline Phosphatase Total Protein Albumin Urine Color Urine Appearance Urine pH Ur Specific [place] Urine Protein Urine Glucose (UA) Urine Ketones Urine Blood Urine Nitrite Urine Bilirubin Urine Urobilinogen Ur Leukocyte Esterase Urine WBC (Auto) Urine RBC (Auto) Urine Casts (Auto) U Epithel Cells (Auto) Urine Bacteria (Auto) POC Urine HCG, Qual [place] Syphilis Serology Hep C Ab Diagnostic HIV Ag/Ab Combo Qual HIV-1 Antibody HIV Ag/Ab Interpret HIV-2 Antibody HIV 1&2 Ag/Ab, 4th Gen HIV 1&2 Ab Final Interp Patient requested to have ASA, Vistaril, Campral and Protonix discontinued stating " I think these medications are making me constipated". Patient educated regarding purpose of medication. potential side effects and risk vs. benefits of treatment. Patient verbalized understanding of education provided but continued to request for provider to d/c medication. Medication d/c as requested.
[2020-04-14] MEDS ORDERED: SODIUM PHOSPHATE/NA BIPHOS 133 ML ENEMA RC ONE (13:56)
[2020-04-14] MEDS: SENNOSIDES 8.6MG TABLET (FP) PO SCH (21:22)
[2020-04-14] MEDS: INSULIN (LEVEMIR) 100 UNITS/ML UNITS SQ SCH (21:22)
[2020-04-14] MEDS: MIRTAZAPINE 15 MG TABLET (FP) PO SCH (21:22)
[2020-04-14] MEDS: THIAMINE HCL 100 MG TABLET (FP) PO SCH (21:22)
[2020-04-14] MEDS: ATORVASTATIN CA 20 MG TABLET (FP) PO SCH (21:22)
[2020-04-14] MEDS: MELATONIN 5 MG TABLETS PO SCH (21:24)
[2020-04-14] MEDS ORDERED: INSULIN (NOVOLOG) ASPART 100 UNITS/ML 10ML VIAL ONE ×2 (21:26→22:09)
[2020-04-14] MEDS ORDERED: INSULIN (LEVEMIR) 100 UNITS/ML UNITS SQ ONE (22:09)
[2020-04-15] MEDS: GABAPENTIN 300 MG CAPSULE PO SCH ×2 (06:36→18:36)
[2020-04-15] MEDS: DOCUSATE SODIUM 100 MG CAPSULE (FP) PO SCH ×3 (06:36→21:05)
[2020-04-15] MEDS: INSULIN SLIDING SCALE (NOVOLOG) 1 VIAL SQ SCH ×4 (06:37→21:09)
[2020-04-15] MEDS: metFORMIN HCL 500 MG TABLET (FP) PO SCH ×2 (07:20→16:30)
[2020-04-15] MEDS: PRENATAL VITAMINS W/ FOLIC ACID TABLET (FP) PO SCH (09:40)
[2020-04-15] MEDS: COLCHICINE 0.6 MG TAB PO SCH (09:40)
[2020-04-15] MEDS: BACITRACIN 0.9 GM PACKET TP SCH ×2 (09:41→21:05)
[2020-04-15] MEDS: LURASIDONE HCL 20 MG TABLET PO SCH (09:41)
[2020-04-15] MEDS: LITHIUM CARBONATE 300 MG CAPSULE (FP) PO SCH ×2 (09:41→21:08)
[2020-04-15] MEDS: IBUPROFEN 600 MG TABLET (FP) PO PRN ×2 (10:11→19:16)
[2020-04-15] MEDS: BISACODYL 5 MG TABLET.DR (FP) PO PRN (10:11)
[2020-04-15] MEDS: CALCIUM 250MG/VIT-D 125 UNITS 1 COMBO TABLET PO SCH (10:13)
--- NOTE | 2020-04-15 10:15 | PN ---
[facility] Progress Note Note: Patient on Metformin 1000mg BID and is experiencing low BGMs in a the AM. Nurses are not able to give her the metformin until after she eats. Discussed the issue with Ms. Dutta, who believes that the reason her BGMs are low in the AM is because her bedtime BGM is high related to eating a high carbohydrate snack late in the evening. Ms. Dutta decided to eat her evening snack at 7:30 pm, rather than at 10:00. Will continue to monitor. Laboratory Last Values WBC 5.5 K/mm3 (4.0-10.0) 04/11/20 07:35 RBC 3.60 M/mm3 (3.60-5.2) 04/11/20 07:35 Hgb 11.8 GM/dL (10.7-15.3) 04/11/20 07:35 Hct 35.1 % (32.4-45.2) 04/11/20 07:35 MCV 97.4 fl (80-96) H 04/11/20 07:35 MCH 32.8 pg (25.7-33.7) 04/11/20 07:35 MCHC 33.7 g/dl (32.0-36.0) 04/11/20 07:35 RDW 12.1 % (11.6-15.6) 04/11/20 07:35 Plt Count 354 K/MM3 (134-434) 04/11/20 07:35 MPV 8.6 fl (7.5-11.1) 04/11/20 07:35 Absolute Neuts (auto) 2.5 K/mm3 (1.5-8.0) 04/11/20 07:35 Neutrophils % 46.0 % (42.8-82.8) 04/11/20 07:35 Lymphocytes % 38.3 % (8-40) 04/11/20 07:35 Monocytes % 10.8 % (3.8-10.2) H 04/11/20 07:35 Eosinophils % 3.3 % (0-4.5) 04/11/20 07:35 Basophils % 1.6 % (0-2.0) 04/11/20 07:35 Nucleated RBC % 0 % (0-0) 04/11/20 07:35 Sodium 138 mmol/L (136-145) 04/11/20 07:35 Potassium 4.5 mmol/L (3.5-5.1) 04/11/20 07:35 Chloride 106 mmol/L (98-107) 04/11/20 07:35 Carbon Dioxide 28 mmol/L (21-32) 04/11/20 07:35 Anion Gap 5 MMOL/L (8-16) L 04/11/20 07:35 BUN 15.5 mg/dL (7-18) 04/11/20 07:35 Creatinine 0.6 mg/dL (0.55-1.3) 04/11/20 07:35 Est GFR (CKD-EPI)AfAm 124.92 04/11/20 07:35 Est GFR (CKD-EPI)NonAf 107.78 04/11/20 07:35 POC Glucometer 145 UNITS (80-120) 04/15/20 07:19 Random Glucose 84 mg/dL (74-106) 04/11/20 07:35 Calcium 9.6 mg/dL (8.5-10.1) 04/11/20 07:35 Total Bilirubin 0.2 mg/dL (0.2-1) 04/11/20 07:35 AST 25 U/L (15-37) 04/11/20 07:35 ALT 33 U/L (13-61) 04/11/20 07:35 Alkaline Phosphatase 57 U/L (45-117) 04/11/20 07:35 Total Protein 7.1 g/dl (6.4-8.2) 04/11/20 07:35 Albumin 3.3 g/dl (3.4-5.0) L 04/11/20 07:35 Urine Color Yellow 04/12/20 11:05 Urine Appearance Cloudy 04/12/20 11:05 Urine pH 7.0 (5.0-8.0) D 04/12/20 11:05 Ur Specific Means 1.003 (1.010-1.035) L 04/12/20 11:05 Urine Protein Negative (NEGATIVE) 04/12/20 11:05 Urine Glucose (UA) Trace (NEGATIVE) 04/12/20 11:05 Urine Ketones Negative (NEGATIVE) 04/12/20 11:05 Urine Blood Negative (NEGATIVE) 04/12/20 11:05 Urine Nitrite Negative (NEGATIVE) 04/12/20 11:05 Urine Bilirubin Negative (NEGATIVE) 04/12/20 11:05 Urine Urobilinogen 0.2 mg/dL (0.2-1.0) 04/12/20 11:05 Ur Leukocyte Esterase Trace (NEGATIVE) 04/12/20 11:05 Urine WBC (Auto) 24 /uL (0-25.8) 04/12/20 11:05 Urine RBC (Auto) 1 /uL (0-23.9) 04/12/20 11:05 Urine Casts (Auto) 0 /uL (0-3.1) 04/12/20 11:05 U Epithel Cells (Auto) 8 /uL (0-25.1) 04/12/20 11:05 Urine Bacteria (Auto) 11 /uL (0-1359) 04/12/20 11:05 POC Urine HCG, Qual Negative 04/08/20 17:08 Bessie 0.3 MEQ/L (0.6-1.2) L 04/11/20 07:50 Syphilis Serology Non-reactive (NONREACTIVE) 04/10/20 08:00 Hep C Ab Diagnostic 0.1 s/co ratio (0.0-0.9) 04/10/20 08:00 HIV Ag/Ab Combo Qual Negative (NEGATIVE) 04/09/20 08:00 HIV-1 Antibody Cancelled 04/09/20 07:00 HIV Ag/Ab Interpret Cancelled 04/09/20 07:00 HIV-2 Antibody Cancelled 04/09/20 07:00 HIV 1&2 Ag/Ab, 4th Gen Cancelled 04/09/20 07:00 HIV 1&2 Ab Final Interp Cancelled 04/09/20 07:00 Vital Signs Period Temp Pulse Resp BP Sys/Hand Pulse Ox Last 24 Hr 97.8 F 64 18 109/68 98-100
[2020-04-15] MEDS ORDERED: PT OWN MED DRAWER 7, Y5N ONE ×2 (10:16→14:11)
[2020-04-15] MEDS: hydrOXYzine PAMOATE 25 MG CAPSULE (FP) PO PRN ×3 (11:06→21:05)
[2020-04-15] MEDS ORDERED: FLU VACCINE (FLULAVAL) PF 60 MCG/0.5 ML SYRINGE 2020-2021 IM ONE (12:00)
[2020-04-15] MEDS ORDERED: INSULIN (NOVOLOG) ASPART 100 UNITS/ML 10ML VIAL ONE ×2 (17:01→22:30)
[2020-04-15] MEDS: ATORVASTATIN CA 20 MG TABLET (FP) PO SCH (21:05)
[2020-04-15] MEDS: SENNOSIDES 8.6MG TABLET (FP) PO SCH (21:05)
[2020-04-15] MEDS: MIRTAZAPINE 15 MG TABLET (FP) PO SCH (21:05)
[2020-04-15] MEDS: THIAMINE HCL 100 MG TABLET (FP) PO SCH (21:05)
[2020-04-15] MEDS: INSULIN (LEVEMIR) 100 UNITS/ML UNITS SQ SCH (21:07)
[2020-04-15] MEDS: MELATONIN 5 MG TABLETS PO SCH (21:09)
[2020-04-16] MEDS: metFORMIN HCL 500 MG TABLET (FP) PO SCH ×2 (06:31→16:43)
[2020-04-16] MEDS: INSULIN SLIDING SCALE (NOVOLOG) 1 VIAL SQ SCH ×4 (06:32→21:18)
[2020-04-16] MEDS: DOCUSATE SODIUM 100 MG CAPSULE (FP) PO SCH ×3 (06:32→21:14)
[2020-04-16] MEDS: GABAPENTIN 300 MG CAPSULE PO SCH ×2 (06:32→18:00)
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
[2020-04-16] MEDS ORDERED: MAG HYDROX/AL HYDROX/SIMETH 30 ML UNIT-DOSE CUP PO PRN (08:16)
[2020-04-16] MEDS ORDERED: PT OWN MED DRAWER 7, Y5N ONE ×2 (08:36→09:57)
[2020-04-16] MEDS ORDERED: SODIUM PHOSPHATE/NA BIPHOS 133 ML ENEMA PR ONE (09:39)
[2020-04-16] MEDS: COLCHICINE 0.6 MG TAB PO SCH (09:43)
[2020-04-16] MEDS: LURASIDONE HCL 20 MG TABLET PO SCH (09:43)
[2020-04-16] MEDS: LITHIUM CARBONATE 300 MG CAPSULE (FP) PO SCH ×2 (09:43→21:15)
[2020-04-16] MEDS: PRENATAL VITAMINS W/ FOLIC ACID TABLET (FP) PO SCH (09:44)
[2020-04-16] MEDS: CALCIUM 250MG/VIT-D 125 UNITS 1 COMBO TABLET PO SCH (09:44)
[2020-04-16] MEDS: BACITRACIN 0.9 GM PACKET TP SCH ×2 (09:44→21:14)
[2020-04-16] MEDS: hydrOXYzine PAMOATE 25 MG CAPSULE (FP) PO PRN ×2 (09:46→18:01)
--- NOTE | 2020-04-16 13:28 | PN ---
[facility] Progress Note Note: Patient is scheduled for discharged tomorrow. Scripts for 30 days supply of medications(Latuda 20 mg/hs, Remeron 15 mg/hs, Lostant 300 mg/bid) will be electronically transmitted to [facility], [address] [place] [id number]
[2020-04-16] MEDS ORDERED: INSULIN (NOVOLOG) ASPART 100 UNITS/ML 10ML VIAL ONE (16:31)
[2020-04-16] MEDS: THIAMINE HCL 100 MG TABLET (FP) PO SCH (21:14)
[2020-04-16] MEDS: ATORVASTATIN CA 20 MG TABLET (FP) PO SCH (21:14)
[2020-04-16] MEDS: MIRTAZAPINE 15 MG TABLET (FP) PO SCH (21:14)
[2020-04-16] MEDS: SENNOSIDES 8.6MG TABLET (FP) PO SCH (21:14)
[2020-04-16] MEDS: MELATONIN 5 MG TABLETS PO SCH (21:15)
[2020-04-16] MEDS: INSULIN (LEVEMIR) 100 UNITS/ML UNITS SQ SCH (21:15)
[2020-04-16] MEDS ORDERED: SODIUM PHOSPHATE/NA BIPHOS 133 ML ENEMA RC ONE (22:00)
[2020-04-17 06:57] VITALS: BP 101/60; PULSE 67; TEMP 97.7
[2020-04-17] MEDS: GABAPENTIN 300 MG CAPSULE PO SCH (07:02)
[2020-04-17] MEDS: DOCUSATE SODIUM 100 MG CAPSULE (FP) PO SCH (07:03)
[2020-04-17] MEDS: INSULIN SLIDING SCALE (NOVOLOG) 1 VIAL SQ SCH (07:03)
[2020-04-17] MEDS: metFORMIN HCL 500 MG TABLET (FP) PO SCH (07:03)
[2020-04-17] MEDS ORDERED: PT OWN MED DRAWER 7, Y5N ONE (08:48)
[2020-04-17] MEDS: LURASIDONE HCL 20 MG TABLET PO SCH (09:11)
[2020-04-17] MEDS: LITHIUM CARBONATE 300 MG CAPSULE (FP) PO SCH (09:11)
[2020-04-17] MEDS: CALCIUM 250MG/VIT-D 125 UNITS 1 COMBO TABLET PO SCH (09:11)
[2020-04-17] MEDS: COLCHICINE 0.6 MG TAB PO SCH (09:12)
[2020-04-17] MEDS: PRENATAL VITAMINS W/ FOLIC ACID TABLET (FP) PO SCH (09:12)
[2020-04-17] MEDS: BACITRACIN 0.9 GM PACKET TP SCH (09:13)
== END 2020-04-17 09:22 | disposition home or self-care (01) | DRG 772 ==
LOC: YASAS 15:03 → Y3E 18:01
PROVIDERS: ADMIT Allergy & Immunology; ATTEND Allergy & Immunology
PROC: HZ42ZZZ Group Counseling for Substance Abuse Treatment, Cognitive-Behavioral (ICD-10-PCS; principal; 2020-04-08)
DX: F10.20 Alcohol dependence, uncomplicated (principal); F14.20 Cocaine dependence, uncomplicated; F17.210 Nicotine dependence, cigarettes, uncomplicated; F19.282 Other psychoactive substance dependence with psychoactive substance-induced sleep disorder; F19.24 Other psychoactive substance dependence with psychoactive substance-induced mood disorder; F31.9 Bipolar disorder, unspecified; F25.9 Schizoaffective disorder, unspecified; D64.9 Anemia, unspecified; E03.9 Hypothyroidism, unspecified; E11.42 Type 2 diabetes mellitus with diabetic polyneuropathy; Z79.84 Long term (current) use of oral hypoglycemic drugs; E78.5 Hyperlipidemia, unspecified; K59.00 Constipation, unspecified; K29.30 Chronic superficial gastritis without bleeding; H26.9 Unspecified cataract; H33.21 Serous retinal detachment, right eye; M10.9 Gout, unspecified; M54.31 Sciatica, right side; M54.89 Other dorsalgia; M54.2 Cervicalgia; G89.29 Other chronic pain; R16.0 Hepatomegaly, not elsewhere classified; Z86.19 Personal history of other infectious and parasitic diseases; Z90.49 Acquired absence of other specified parts of digestive tract; Z91.410 Personal history of adult physical and sexual abuse; Z56.0 Unemployment, unspecified
CPT/HCPCS: 36415; 80053; 80178; 81003; 81025; 82962; 85025; 86780; 86803; 87389; 93005; 93010; Q2036

== ENCOUNTER 2021-01-09 17:43 | Inpatient (IN) | payer OTHER ==
[2021-01-09 19:11] VITALS: BMI 24.5
[2021-01-10] MEDS ORDERED: NICOTINE POLACRILEX 2 MG GUM BC PRN (01:19)
[2021-01-10] MEDS ORDERED: LOPERAMIDE HCL 2 MG CAPSULE PO PRN (01:19)
[2021-01-10] MEDS ORDERED: MAGNESIUM CITRATE 300 ML BOTTLE PO PRN (01:19)
[2021-01-10] MEDS ORDERED: MAG HYDROX/AL HYDROX/SIMETH 30 ML UNIT-DOSE CUP PO PRN (01:19)
[2021-01-10] MEDS: MELATONIN 5 MG TABLETS PO SCH ×2 (02:55→22:23)
[2021-01-10 10:03] LABS: HEMATOCRIT 38.2 % (32.4-45.2); HEMOGLOBIN 12.7 GM/dL (10.7-15.3); MCHC 33.1 g/dl (32.0-36.0); MEAN CELL VOLUME 99.5 fl (80-96); MEAN PLT VOLUME 8.8 fl (7.5-11.1); PLATELET COUNT 269 10^3/uL (134-434); RBC 3.84 M/mm3 (3.60-5.2); RDW 11.9 % (11.6-15.6); WHITE BLOOD COUNT 5.6 K/mm3 (4.0-10.0)
[2021-01-10 10:16] LABS: CALCIUM 8.8 mg/dL (8.5-10.1)
[2021-01-10 10:17] LABS: BLOOD UREA NITROGEN 16.1 mg/dL (7-18)
[2021-01-10 10:20] LABS: ALBUMIN 2.9 g/dl (3.4-5.0); CREATININE 0.8 mg/dL (0.55-1.3)
[2021-01-10 10:21] LABS: BILIRUBIN,TOTAL 0.2 mg/dL (0.2-1); TOT PROT 6.5 g/dl (6.4-8.2)
[2021-01-10] MEDS: NICOTINE 14 MG/24 HOURS TOPICAL PATCH TD SCH (10:28)
[2021-01-10] MEDS: PRENATAL VITAMINS W/ FOLIC ACID TABLET (FP) PO SCH (10:28)
[2021-01-10] MEDS: IBUPROFEN 400 MG TABLET (FP) PO PRN ×2 (10:30→17:22)
[2021-01-10 11:03] LABS: HIV INTERPRETATION NEGATIVE (NEGATIVE)
[2021-01-10] MEDS: INSULIN (NOVOLOG) ASPART 100 UNITS/ML 10ML VIAL SQ SCH ×3 (12:21→22:54)
[2021-01-10 13:19] LABS: URINE APPEARANCE Clear; URINE BILIRUBIN Negative (NEGATIVE); URINE COLOR Yellow; URINE GLUCOSE (UA) 3+ (NEGATIVE); URINE KETONE Negative (NEGATIVE); URINE LEUK ESTERASE Negative (NEGATIVE); URINE NITRITE Negative (NEGATIVE); URINE PROTEIN Negative (NEGATIVE); URINE UROBILINOGEN 0.2 mg/dL (0.2-1.0)
[2021-01-10] MEDS: MAGNESIUM HYDROX 2400MG/30ML ORAL SUSPENSION 30 ML CUP PO PRN (17:22)
[2021-01-10] MEDS: metFORMIN HCL 500 MG TABLET (FP) PO SCH (17:22)
[2021-01-10] MEDS: THIAMINE HCL 100 MG TABLET (FP) PO SCH (22:23)
[2021-01-10] MEDS: hydrOXYzine PAMOATE 25 MG CAPSULE (FP) PO PRN (22:23)
[2021-01-10] MEDS: ATORVASTATIN CA 20 MG TABLET (FP) PO SCH (22:23)
[2021-01-10] MEDS: guaiFENesin 200 MG/10 ML 10 ML UNIT-DOSE CUPS PO PRN (22:24)
[2021-01-10] MEDS ORDERED: INSULIN (NOVOLOG) ASPART 100 UNITS/ML 10ML VIAL ONE (23:08)
[2021-01-11] MEDS ORDERED: INSULIN (LEVEMIR) 100 UNITS/ML UNITS SQ ONE (00:07)
[2021-01-11] MEDS: metFORMIN HCL 500 MG TABLET (FP) PO SCH ×2 (06:21→16:38)
[2021-01-11] MEDS ORDERED: INSULIN (NOVOLOG) ASPART 100 UNITS/ML 10ML VIAL ONE ×3 (06:23→21:54)
[2021-01-11] MEDS: INSULIN (NOVOLOG) ASPART 100 UNITS/ML 10ML VIAL SQ SCH ×4 (06:24→21:56)
[2021-01-11] MEDS: guaiFENesin 200 MG/10 ML 10 ML UNIT-DOSE CUPS PO PRN ×2 (06:51→15:41)
[2021-01-11] MEDS: P-EPHED 60MG/TRIPROLIDI 2.5MG TABLET PO PRN ×2 (06:51→15:41)
[2021-01-11] MEDS: PRENATAL VITAMINS W/ FOLIC ACID TABLET (FP) PO SCH (10:32)
[2021-01-11] MEDS: PANTOPRAZOLE 40 MG TABLET PO SCH (10:33)
[2021-01-11] MEDS: NICOTINE 14 MG/24 HOURS TOPICAL PATCH TD SCH (10:33)
[2021-01-11] MEDS: ASPIRIN 81 MG CHEWABLE TABLETS PO SCH (10:33)
[2021-01-11] MEDS: MAGNESIUM HYDROX 2400MG/30ML ORAL SUSPENSION 30 ML CUP PO PRN (10:37)
[2021-01-11] MEDS: IBUPROFEN 400 MG TABLET (FP) PO PRN ×2 (10:37→17:47)
[2021-01-11] MEDS ORDERED: PT OWN MED DRAWER 7, Y5N ONE (17:33)
[2021-01-11] MEDS: LURASIDONE HCL 20 MG TABLET PO SCH (17:46)
[2021-01-11] MEDS: THIAMINE HCL 100 MG TABLET (FP) PO SCH (21:55)
[2021-01-11] MEDS: ATORVASTATIN CA 20 MG TABLET (FP) PO SCH (21:55)
[2021-01-11] MEDS: MELATONIN 5 MG TABLETS PO SCH (21:55)
[2021-01-11] MEDS: MIRTAZAPINE 15 MG TABLET (FP) PO SCH (21:55)
[2021-01-12] MEDS: INSULIN (NOVOLOG) ASPART 100 UNITS/ML 10ML VIAL SQ SCH ×4 (06:03→22:09)
[2021-01-12] MEDS: metFORMIN HCL 500 MG TABLET (FP) PO SCH ×2 (06:06→16:57)
[2021-01-12] MEDS: IBUPROFEN 400 MG TABLET (FP) PO PRN ×2 (06:06→13:53)
[2021-01-12] MEDS: guaiFENesin 200 MG/10 ML 10 ML UNIT-DOSE CUPS PO PRN (06:07)
[2021-01-12] MEDS: PRENATAL VITAMINS W/ FOLIC ACID TABLET (FP) PO SCH (10:36)
[2021-01-12] MEDS: hydrOXYzine PAMOATE 25 MG CAPSULE (FP) PO PRN ×2 (10:37→22:05)
[2021-01-12] MEDS: ASPIRIN 81 MG CHEWABLE TABLETS PO SCH (10:37)
[2021-01-12] MEDS: NICOTINE 14 MG/24 HOURS TOPICAL PATCH TD SCH (10:37)
[2021-01-12] MEDS: PANTOPRAZOLE 40 MG TABLET PO SCH (10:37)
[2021-01-12] MEDS ORDERED: BISACODYL 5 MG TABLET.DR (FP) PO ONE (11:45)
[2021-01-12] MEDS ORDERED: INSULIN (NOVOLOG) ASPART 100 UNITS/ML 10ML VIAL ONE (12:01)
[2021-01-12] MEDS ORDERED: COLLOIDAL OATMEAL 1 BAR EACH TP PRN (14:52)
[2021-01-12] MEDS: ACETAMINOPHEN 325 MG TABLET (FP) PO PRN (17:00)
[2021-01-12] MEDS ORDERED: PT OWN MED DRAWER 7, Y5N ONE ×2 (17:21→22:49)
[2021-01-12] MEDS: LURASIDONE HCL 20 MG TABLET PO SCH (17:26)
[2021-01-12] MEDS ORDERED: PATIENT'S OWN MEDICATION (NON-FORMULARY) (Gabapentin [Gabapentin] 600 MG Tablet) PO SCH (22:00)
[2021-01-12] MEDS: MIRTAZAPINE 15 MG TABLET (FP) PO SCH (22:04)
[2021-01-12] MEDS: ATORVASTATIN CA 20 MG TABLET (FP) PO SCH (22:04)
[2021-01-12] MEDS: THIAMINE HCL 100 MG TABLET (FP) PO SCH (22:04)
[2021-01-12] MEDS: MELATONIN 5 MG TABLETS PO SCH (22:04)
[2021-01-12] MEDS: GABAPENTIN 300 MG CAPSULE PO SCH (22:07)
[2021-01-12] MEDS: INSULIN (LEVEMIR) 100 UNITS/ML UNITS SQ SCH (22:09)
[2021-01-13] MEDS: GABAPENTIN 300 MG CAPSULE PO SCH ×3 (06:53→21:38)
[2021-01-13] MEDS: metFORMIN HCL 500 MG TABLET (FP) PO SCH ×2 (06:53→16:30)
[2021-01-13] MEDS: INSULIN (NOVOLOG) ASPART 100 UNITS/ML 10ML VIAL SQ SCH ×4 (06:53→21:38)
[2021-01-13] MEDS: guaiFENesin 200 MG/10 ML 10 ML UNIT-DOSE CUPS PO PRN (06:55)
[2021-01-13] MEDS: P-EPHED 60MG/TRIPROLIDI 2.5MG TABLET PO PRN (06:57)
[2021-01-13] MEDS: ASPIRIN 81 MG CHEWABLE TABLETS PO SCH (10:28)
[2021-01-13] MEDS: PRENATAL VITAMINS W/ FOLIC ACID TABLET (FP) PO SCH (10:28)
[2021-01-13] MEDS: PANTOPRAZOLE 40 MG TABLET PO SCH (10:28)
[2021-01-13] MEDS: NICOTINE 14 MG/24 HOURS TOPICAL PATCH TD SCH (10:29)
[2021-01-13] MEDS: hydrOXYzine PAMOATE 25 MG CAPSULE (FP) PO PRN ×2 (10:30→17:51)
[2021-01-13] MEDS ORDERED: BISACODYL 5 MG TABLET.DR (FP) PO ONE (11:55)
[2021-01-13] MEDS ORDERED: INSULIN (NOVOLOG) ASPART 100 UNITS/ML 10ML VIAL ONE ×2 (12:09→16:55)
[2021-01-13] MEDS: LURASIDONE HCL 20 MG TABLET PO SCH (17:52)
[2021-01-13] MEDS: MIRTAZAPINE 15 MG TABLET (FP) PO SCH (21:38)
[2021-01-13] MEDS: MELATONIN 5 MG TABLETS PO SCH (21:38)
[2021-01-13] MEDS: INSULIN (LEVEMIR) 100 UNITS/ML UNITS SQ SCH (21:38)
[2021-01-13] MEDS: ATORVASTATIN CA 20 MG TABLET (FP) PO SCH (21:38)
[2021-01-13] MEDS: THIAMINE HCL 100 MG TABLET (FP) PO SCH (21:38)
[2021-01-14] MEDS: guaiFENesin 200 MG/10 ML 10 ML UNIT-DOSE CUPS PO PRN ×2 (02:28→16:35)
[2021-01-14] MEDS: INSULIN (NOVOLOG) ASPART 100 UNITS/ML 10ML VIAL SQ SCH ×4 (06:12→21:40)
[2021-01-14] MEDS: hydrOXYzine PAMOATE 25 MG CAPSULE (FP) PO PRN ×2 (06:14→14:19)
[2021-01-14] MEDS: GABAPENTIN 300 MG CAPSULE PO SCH ×3 (06:14→21:42)
[2021-01-14] MEDS: metFORMIN HCL 500 MG TABLET (FP) PO SCH ×2 (06:14→16:35)
[2021-01-14] MEDS: ASPIRIN 81 MG CHEWABLE TABLETS PO SCH (10:56)
[2021-01-14] MEDS: PRENATAL VITAMINS W/ FOLIC ACID TABLET (FP) PO SCH (10:56)
[2021-01-14] MEDS: NICOTINE 14 MG/24 HOURS TOPICAL PATCH TD SCH (10:56)
[2021-01-14] MEDS: PANTOPRAZOLE 40 MG TABLET PO SCH (10:56)
[2021-01-14] MEDS: P-EPHED 60MG/TRIPROLIDI 2.5MG TABLET PO PRN (10:57)
[2021-01-14] MEDS ORDERED: INSULIN (NOVOLOG) ASPART 100 UNITS/ML 10ML VIAL ONE (11:45)
[2021-01-14] MEDS: IBUPROFEN 400 MG TABLET (FP) PO PRN (11:48)
[2021-01-14] MEDS ORDERED: SODIUM PHOSPHATE/NA BIPHOS 133 ML ENEMA RC ONE ×2 (12:42→20:00)
[2021-01-14] MEDS ORDERED: PT OWN MED DRAWER 7, Y5N ONE (17:49)
[2021-01-14] MEDS: LURASIDONE HCL 20 MG TABLET PO SCH (17:57)
[2021-01-14] MEDS: INSULIN (LEVEMIR) 100 UNITS/ML UNITS SQ SCH (21:40)
[2021-01-14] MEDS: MELATONIN 5 MG TABLETS PO SCH (21:42)
[2021-01-14] MEDS: THIAMINE HCL 100 MG TABLET (FP) PO SCH (21:42)
[2021-01-14] MEDS: MIRTAZAPINE 15 MG TABLET (FP) PO SCH (21:42)
[2021-01-14] MEDS: ATORVASTATIN CA 20 MG TABLET (FP) PO SCH (21:42)
[2021-01-15] MEDS: GABAPENTIN 300 MG CAPSULE PO SCH ×3 (06:19→21:48)
[2021-01-15] MEDS: metFORMIN HCL 500 MG TABLET (FP) PO SCH ×2 (06:19→16:56)
[2021-01-15] MEDS: INSULIN (NOVOLOG) ASPART 100 UNITS/ML 10ML VIAL SQ SCH ×4 (06:20→21:51)
[2021-01-15] MEDS: hydrOXYzine PAMOATE 25 MG CAPSULE (FP) PO PRN ×3 (06:21→21:47)
[2021-01-15] MEDS: IBUPROFEN 400 MG TABLET (FP) PO PRN ×2 (07:45→19:43)
[2021-01-15] MEDS ORDERED: DOCUSATE SODIUM 100 MG CAPSULE (FP) PO ONE (10:12)
[2021-01-15] MEDS: PANTOPRAZOLE 40 MG TABLET PO SCH (10:28)
[2021-01-15] MEDS: PRENATAL VITAMINS W/ FOLIC ACID TABLET (FP) PO SCH (10:28)
[2021-01-15] MEDS: ASPIRIN 81 MG CHEWABLE TABLETS PO SCH (10:28)
[2021-01-15] MEDS: NICOTINE 14 MG/24 HOURS TOPICAL PATCH TD SCH (10:28)
[2021-01-15] MEDS: guaiFENesin 200 MG/10 ML 10 ML UNIT-DOSE CUPS PO PRN (10:31)
[2021-01-15] MEDS ORDERED: INSULIN (NOVOLOG) ASPART 100 UNITS/ML 10ML VIAL ONE (12:28)
[2021-01-15] MEDS: DOCUSATE SODIUM 100 MG CAPSULE (FP) PO SCH ×2 (13:04→21:48)
[2021-01-15] MEDS: P-EPHED 60MG/TRIPROLIDI 2.5MG TABLET PO PRN (16:55)
[2021-01-15] MEDS ORDERED: PT OWN MED DRAWER 7, Y5N ONE (17:46)
[2021-01-15] MEDS: LURASIDONE HCL 20 MG TABLET PO SCH (17:46)
[2021-01-15] MEDS: THIAMINE HCL 100 MG TABLET (FP) PO SCH (21:47)
[2021-01-15] MEDS: ATORVASTATIN CA 20 MG TABLET (FP) PO SCH (21:47)
[2021-01-15] MEDS: MELATONIN 5 MG TABLETS PO SCH (21:48)
[2021-01-15] MEDS: MIRTAZAPINE 15 MG TABLET (FP) PO SCH (21:48)
[2021-01-15] MEDS: INSULIN (LEVEMIR) 100 UNITS/ML UNITS SQ SCH (21:51)
[2021-01-16] MEDS: GABAPENTIN 300 MG CAPSULE PO SCH ×3 (05:20→21:55)
[2021-01-16] MEDS: DOCUSATE SODIUM 100 MG CAPSULE (FP) PO SCH ×3 (05:20→21:55)
[2021-01-16] MEDS: IBUPROFEN 400 MG TABLET (FP) PO PRN ×3 (05:21→21:58)
[2021-01-16] MEDS: hydrOXYzine PAMOATE 25 MG CAPSULE (FP) PO PRN ×2 (05:22→21:57)
[2021-01-16] MEDS ORDERED: INSULIN (NOVOLOG) ASPART 100 UNITS/ML 10ML VIAL ONE ×3 (05:26→21:52)
[2021-01-16] MEDS: metFORMIN HCL 500 MG TABLET (FP) PO SCH ×2 (07:13→16:50)
[2021-01-16] MEDS: INSULIN (NOVOLOG) ASPART 100 UNITS/ML 10ML VIAL SQ SCH ×4 (07:14→21:50)
[2021-01-16] MEDS: P-EPHED 60MG/TRIPROLIDI 2.5MG TABLET PO PRN (10:39)
[2021-01-16] MEDS: PRENATAL VITAMINS W/ FOLIC ACID TABLET (FP) PO SCH (10:40)
[2021-01-16] MEDS: ASPIRIN 81 MG CHEWABLE TABLETS PO SCH (10:40)
[2021-01-16] MEDS: NICOTINE 14 MG/24 HOURS TOPICAL PATCH TD SCH (10:40)
[2021-01-16] MEDS: PANTOPRAZOLE 40 MG TABLET PO SCH (10:40)
[2021-01-16] MEDS: LURASIDONE HCL 20 MG TABLET PO SCH (18:02)
[2021-01-16] MEDS: ATORVASTATIN CA 20 MG TABLET (FP) PO SCH (21:55)
[2021-01-16] MEDS: MIRTAZAPINE 15 MG TABLET (FP) PO SCH (21:55)
[2021-01-16] MEDS: THIAMINE HCL 100 MG TABLET (FP) PO SCH (21:55)
[2021-01-16] MEDS: MELATONIN 5 MG TABLETS PO SCH (21:56)
[2021-01-16] MEDS: INSULIN (LEVEMIR) 100 UNITS/ML UNITS SQ SCH (22:08)
[2021-01-17] MEDS: hydrOXYzine PAMOATE 25 MG CAPSULE (FP) PO PRN ×3 (05:54→21:22)
[2021-01-17] MEDS: DOCUSATE SODIUM 100 MG CAPSULE (FP) PO SCH ×3 (05:54→21:22)
[2021-01-17] MEDS: GABAPENTIN 300 MG CAPSULE PO SCH ×3 (05:54→21:22)
[2021-01-17] MEDS: IBUPROFEN 400 MG TABLET (FP) PO PRN ×2 (05:57→16:59)
[2021-01-17] MEDS: metFORMIN HCL 500 MG TABLET (FP) PO SCH ×2 (06:00→16:59)
[2021-01-17] MEDS: INSULIN (NOVOLOG) ASPART 100 UNITS/ML 10ML VIAL SQ SCH ×4 (06:00→21:25)
[2021-01-17] MEDS: NICOTINE 14 MG/24 HOURS TOPICAL PATCH TD SCH (10:00)
[2021-01-17] MEDS: PRENATAL VITAMINS W/ FOLIC ACID TABLET (FP) PO SCH (10:00)
[2021-01-17] MEDS: ASPIRIN 81 MG CHEWABLE TABLETS PO SCH (10:01)
[2021-01-17] MEDS: PANTOPRAZOLE 40 MG TABLET PO SCH (10:01)
[2021-01-17] MEDS: P-EPHED 60MG/TRIPROLIDI 2.5MG TABLET PO PRN (10:01)
[2021-01-17] MEDS ORDERED: BACITRACIN 15 GM TUBE TOPICAL OINTMENT TP SCH (12:00)
[2021-01-17] MEDS: BACITRACIN 0.9 GM PACKET TP SCH ×2 (12:15→22:35)
[2021-01-17] MEDS ORDERED: INSULIN (NOVOLOG) ASPART 100 UNITS/ML 10ML VIAL ONE (12:44)
[2021-01-17] MEDS: LURASIDONE HCL 20 MG TABLET PO SCH (18:24)
[2021-01-17] MEDS ORDERED: PT OWN MED DRAWER 7, Y5N ONE (18:24)
[2021-01-17] MEDS: ATORVASTATIN CA 20 MG TABLET (FP) PO SCH (21:22)
[2021-01-17] MEDS: THIAMINE HCL 100 MG TABLET (FP) PO SCH (21:22)
[2021-01-17] MEDS: MIRTAZAPINE 15 MG TABLET (FP) PO SCH (21:22)
[2021-01-17] MEDS: MELATONIN 5 MG TABLETS PO SCH (21:23)
[2021-01-17] MEDS: BISACODYL 5 MG TABLET.DR (FP) PO PRN (21:24)
[2021-01-17] MEDS: INSULIN (LEVEMIR) 100 UNITS/ML UNITS SQ SCH (21:26)
[2021-01-18] MEDS: INSULIN (NOVOLOG) ASPART 100 UNITS/ML 10ML VIAL SQ SCH ×4 (06:17→21:51)
[2021-01-18] MEDS: DOCUSATE SODIUM 100 MG CAPSULE (FP) PO SCH ×3 (06:18→21:50)
[2021-01-18] MEDS: metFORMIN HCL 500 MG TABLET (FP) PO SCH ×2 (06:18→16:58)
[2021-01-18] MEDS: GABAPENTIN 300 MG CAPSULE PO SCH ×3 (06:18→21:50)
[2021-01-18] MEDS: hydrOXYzine PAMOATE 25 MG CAPSULE (FP) PO PRN ×2 (06:19→21:50)
[2021-01-18] MEDS: IBUPROFEN 400 MG TABLET (FP) PO PRN ×2 (06:39→14:37)
[2021-01-18] MEDS: NICOTINE 14 MG/24 HOURS TOPICAL PATCH TD SCH (10:30)
[2021-01-18] MEDS: BACITRACIN 0.9 GM PACKET TP SCH ×2 (10:30→21:50)
[2021-01-18] MEDS: ASPIRIN 81 MG CHEWABLE TABLETS PO SCH (10:30)
[2021-01-18] MEDS: PANTOPRAZOLE 40 MG TABLET PO SCH (10:30)
[2021-01-18] MEDS: P-EPHED 60MG/TRIPROLIDI 2.5MG TABLET PO PRN (10:31)
[2021-01-18] MEDS: PRENATAL VITAMINS W/ FOLIC ACID TABLET (FP) PO SCH (10:32)
[2021-01-18] MEDS ORDERED: INSULIN (NOVOLOG) ASPART 100 UNITS/ML 10ML VIAL ONE (11:48)
[2021-01-18] MEDS: ACETAMINOPHEN 325 MG TABLET (FP) PO PRN (16:54)
[2021-01-18] MEDS: LURASIDONE HCL 20 MG TABLET PO SCH (18:30)
[2021-01-18] MEDS: THIAMINE HCL 100 MG TABLET (FP) PO SCH (21:50)
[2021-01-18] MEDS: MIRTAZAPINE 15 MG TABLET (FP) PO SCH (21:50)
[2021-01-18] MEDS: ATORVASTATIN CA 20 MG TABLET (FP) PO SCH (21:50)
[2021-01-18] MEDS: MELATONIN 5 MG TABLETS PO SCH (21:50)
[2021-01-18] MEDS: INSULIN (LEVEMIR) 100 UNITS/ML UNITS SQ SCH (21:52)
[2021-01-18] MEDS: BISACODYL 5 MG TABLET.DR (FP) PO PRN (22:42)
[2021-01-19] MEDS: IBUPROFEN 400 MG TABLET (FP) PO PRN ×3 (06:13→20:32)
[2021-01-19] MEDS: DOCUSATE SODIUM 100 MG CAPSULE (FP) PO SCH ×3 (06:15→22:46)
[2021-01-19] MEDS: hydrOXYzine PAMOATE 25 MG CAPSULE (FP) PO PRN ×3 (06:15→23:12)
[2021-01-19] MEDS: GABAPENTIN 300 MG CAPSULE PO SCH ×3 (06:15→22:47)
[2021-01-19] MEDS: metFORMIN HCL 500 MG TABLET (FP) PO SCH ×2 (06:15→16:57)
[2021-01-19] MEDS: INSULIN (NOVOLOG) ASPART 100 UNITS/ML 10ML VIAL SQ SCH ×4 (06:16→22:50)
[2021-01-19] MEDS: ACETAMINOPHEN 325 MG TABLET (FP) PO PRN (08:51)
[2021-01-19] MEDS: ASPIRIN 81 MG CHEWABLE TABLETS PO SCH (10:41)
[2021-01-19] MEDS: PANTOPRAZOLE 40 MG TABLET PO SCH (10:41)
[2021-01-19] MEDS: PRENATAL VITAMINS W/ FOLIC ACID TABLET (FP) PO SCH (10:42)
[2021-01-19] MEDS: NICOTINE 14 MG/24 HOURS TOPICAL PATCH TD SCH (10:42)
[2021-01-19] MEDS: BACITRACIN 0.9 GM PACKET TP SCH ×2 (10:42→22:47)
[2021-01-19] MEDS: BISACODYL 5 MG TABLET.DR (FP) PO PRN (10:43)
[2021-01-19] MEDS: MAGNESIUM HYDROX 2400MG/30ML ORAL SUSPENSION 30 ML CUP PO PRN (11:55)
[2021-01-19] MEDS ORDERED: INSULIN (NOVOLOG) ASPART 100 UNITS/ML 10ML VIAL ONE ×2 (11:58→16:55)
[2021-01-19] MEDS ORDERED: PT OWN MED DRAWER 7, Y5N ONE (18:03)
[2021-01-19] MEDS: LURASIDONE HCL 20 MG TABLET PO SCH (18:03)
[2021-01-19] MEDS ORDERED: INSULIN (LEVEMIR) 100 UNITS/ML UNITS SQ SCH (22:00)
[2021-01-19] MEDS: ATORVASTATIN CA 20 MG TABLET (FP) PO SCH (22:46)
[2021-01-19] MEDS: THIAMINE HCL 100 MG TABLET (FP) PO SCH (22:46)
[2021-01-19] MEDS: MELATONIN 5 MG TABLETS PO SCH (22:47)
[2021-01-19] MEDS: MIRTAZAPINE 15 MG TABLET (FP) PO SCH (22:47)
[2021-01-20] MEDS: metFORMIN HCL 500 MG TABLET (FP) PO SCH ×2 (06:15→17:19)
[2021-01-20] MEDS: GABAPENTIN 300 MG CAPSULE PO SCH ×3 (06:15→21:45)
[2021-01-20] MEDS: DOCUSATE SODIUM 100 MG CAPSULE (FP) PO SCH ×3 (06:15→21:45)
[2021-01-20] MEDS ORDERED: INSULIN (NOVOLOG) ASPART 100 UNITS/ML 10ML VIAL ONE ×3 (06:17→17:03)
[2021-01-20] MEDS: IBUPROFEN 400 MG TABLET (FP) PO PRN ×2 (06:18→14:52)
[2021-01-20] MEDS: INSULIN (NOVOLOG) ASPART 100 UNITS/ML 10ML VIAL SQ SCH ×4 (06:18→21:51)
[2021-01-20] MEDS: PANTOPRAZOLE 40 MG TABLET PO SCH (10:32)
[2021-01-20] MEDS: PRENATAL VITAMINS W/ FOLIC ACID TABLET (FP) PO SCH (10:32)
[2021-01-20] MEDS: NICOTINE 14 MG/24 HOURS TOPICAL PATCH TD SCH (10:32)
[2021-01-20] MEDS: BACITRACIN 0.9 GM PACKET TP SCH ×2 (10:32→21:46)
[2021-01-20] MEDS: ASPIRIN 81 MG CHEWABLE TABLETS PO SCH (10:32)
[2021-01-20] MEDS: MAGNESIUM HYDROX 2400MG/30ML ORAL SUSPENSION 30 ML CUP PO PRN (10:34)
[2021-01-20] MEDS: ACETAMINOPHEN 325 MG TABLET (FP) PO PRN (10:37)
[2021-01-20] MEDS ORDERED: PT OWN MED DRAWER 7, Y5N ONE ×3 (12:12→21:53)
[2021-01-20] MEDS: hydrOXYzine PAMOATE 25 MG CAPSULE (FP) PO PRN (14:54)
[2021-01-20] MEDS: LURASIDONE HCL 20 MG TABLET PO SCH (17:20)
[2021-01-20] MEDS: THIAMINE HCL 100 MG TABLET (FP) PO SCH (21:44)
[2021-01-20] MEDS: MELATONIN 5 MG TABLETS PO SCH (21:44)
[2021-01-20] MEDS: ATORVASTATIN CA 20 MG TABLET (FP) PO SCH (21:45)
[2021-01-20] MEDS: MIRTAZAPINE 15 MG TABLET (FP) PO SCH (21:45)
[2021-01-20] MEDS: BISACODYL 5 MG TABLET.DR (FP) PO PRN (21:48)
[2021-01-20] MEDS ORDERED: INSULIN (LEVEMIR) 100 UNITS/ML UNITS SQ SCH (22:00)
[2021-01-20] MEDS ORDERED: METRONIDAZOLE 0.75% VG SCH (22:00)
[2021-01-20] MEDS ORDERED: NAPROXEN 500 MG TABLET PO ONE (22:05)
[2021-01-21] MEDS: metFORMIN HCL 500 MG TABLET (FP) PO SCH (06:21)
[2021-01-21] MEDS: GABAPENTIN 300 MG CAPSULE PO SCH (06:21)
[2021-01-21] MEDS: DOCUSATE SODIUM 100 MG CAPSULE (FP) PO SCH (06:21)
[2021-01-21] MEDS: ACETAMINOPHEN 325 MG TABLET (FP) PO PRN (06:26)
[2021-01-21] MEDS: hydrOXYzine PAMOATE 25 MG CAPSULE (FP) PO PRN (06:26)
[2021-01-21] MEDS ORDERED: INSULIN (NOVOLOG) ASPART 100 UNITS/ML 10ML VIAL ONE (06:48)
[2021-01-21] MEDS: INSULIN (NOVOLOG) ASPART 100 UNITS/ML 10ML VIAL SQ SCH (06:49)
[2021-01-21 07:36] VITALS: TEMP 97.4
[2021-01-21] MEDS: BACITRACIN 0.9 GM PACKET TP SCH (09:43)
[2021-01-21] MEDS: ASPIRIN 81 MG CHEWABLE TABLETS PO SCH (09:43)
[2021-01-21] MEDS: PANTOPRAZOLE 40 MG TABLET PO SCH (09:44)
[2021-01-21] MEDS: PRENATAL VITAMINS W/ FOLIC ACID TABLET (FP) PO SCH (09:44)
[2021-01-21] MEDS ORDERED: PT OWN MED DRAWER 7, Y5N ONE (09:45)
[2021-01-21] MEDS: IBUPROFEN 400 MG TABLET (FP) PO PRN (09:46)
[2021-01-21] MEDS: NICOTINE 14 MG/24 HOURS TOPICAL PATCH TD SCH (10:47)
[2021-01-21 10:58] VITALS: BP 112/60; PULSE 78
== END 2021-01-21 10:40 | disposition home or self-care (01) | DRG 772 ==
LOC: YASAS 17:43 → Y5N 23:38
PROVIDERS: ADMIT Allergy & Immunology; ATTEND Allergy & Immunology
PROC: HZ42ZZZ Group Counseling for Substance Abuse Treatment, Cognitive-Behavioral (ICD-10-PCS; principal; 2021-01-09)
DX: F10.20 Alcohol dependence, uncomplicated (principal); F14.20 Cocaine dependence, uncomplicated; F17.210 Nicotine dependence, cigarettes, uncomplicated; F25.0 Schizoaffective disorder, bipolar type; F19.282 Other psychoactive substance dependence with psychoactive substance-induced sleep disorder; F31.9 Bipolar disorder, unspecified; E11.42 Type 2 diabetes mellitus with diabetic polyneuropathy; Z79.4 Long term (current) use of insulin; D64.9 Anemia, unspecified; E03.9 Hypothyroidism, unspecified; E55.9 Vitamin D deficiency, unspecified; G56.00 Carpal tunnel syndrome, unspecified upper limb; H26.9 Unspecified cataract; M10.062 Idiopathic gout, left knee; K59.00 Constipation, unspecified; K29.50 Unspecified chronic gastritis without bleeding; Z62.810 Personal history of physical and sexual abuse in childhood; Z86.19 Personal history of other infectious and parasitic diseases; Z87.42 Personal history of other diseases of the female genital tract; Z91.5 Personal history of self-harm
CPT/HCPCS: 36415; 80053; 81003; 81025; 82962; 85027; 86780; 87389; 93005; 93010; C9803; U0003; U0005

== ENCOUNTER 2022-07-16 13:59 | Inpatient (IN) | payer OTHER ==
[2022-07-16 15:41] VITALS: BMI 18.7
[2022-07-16] MEDS ORDERED: IBUPROFEN 600 MG TABLET (FP) PO PRN (18:08)
[2022-07-16] MEDS ORDERED: BISMUTH SUBSALICYLATE 524 MG/30 ML PO PRN (18:08)
[2022-07-16] MEDS ORDERED: DICYCLOMINE HCL 10 MG CAPSULE PO PRN (18:08)
[2022-07-16] MEDS ORDERED: NALOXONE HCL (KLOXXADO) 8 MG SPRAY NS PRN (18:08)
[2022-07-16] MEDS ORDERED: NALOXONE HCL 0.4 MG/ML VIAL IM PRN (18:08)
[2022-07-16] MEDS ORDERED: BENZOCAINE/MENTHOL (CHLORASEPTIC ) LOZENGE MM PRN (18:08)
[2022-07-16] MEDS ORDERED: IBUPROFEN 400 MG TABLET (FP) PO PRN (18:08)
[2022-07-16] MEDS ORDERED: MAG HYDROX/AL HYDROX/SIMETH 30 ML UNIT-DOSE CUP PO PRN (18:08)
[2022-07-16] MEDS ORDERED: ONDANSETRON *ODT* 4 MG TABLET SL PRN (18:08)
[2022-07-16] MEDS ORDERED: ACETAMINOPHEN 325 MG TABLET (FP) PO PRN (18:08)
[2022-07-16] MEDS ORDERED: LOPERAMIDE HCL 2 MG CAPSULE PO PRN (18:08)
[2022-07-16] MEDS ORDERED: POLYETHYLENE GLYCOL (HEALTHYLAX) 3350 17 GM PACKET PO PRN (18:08)
[2022-07-16] MEDS ORDERED: methaDONE HCL 10 MG TABLET (FOR DETOX USE ONLY) PO ONE (19:30)
[2022-07-16] MEDS ORDERED: methaDONE HCL 10 MG TABLET (FOR DETOX USE ONLY) ONE (19:46)
[2022-07-16] MEDS: PRENATAL VITAMINS W/ FOLIC ACID TABLET (FP) PO SCH (20:14)
[2022-07-16] MEDS ORDERED: INSULIN (NOVOLOG) ASPART 100 UNITS/ML 10ML VIAL SQ ONE (21:53)
[2022-07-16] MEDS: GABAPENTIN 100 MG CAPSULE PO SCH (21:59)
[2022-07-16] MEDS: MELATONIN 5 MG TABLETS PO SCH (21:59)
[2022-07-16] MEDS: THIAMINE HCL 100 MG TABLET (FP) PO SCH (21:59)
[2022-07-17] MEDS: METHOCARBAMOL 500 MG TABLET PO PRN ×2 (05:14→18:26)
[2022-07-17] MEDS: GABAPENTIN 100 MG CAPSULE PO SCH ×3 (05:15→21:31)
[2022-07-17] MEDS: metFORMIN HCL 500 MG TABLET (FP) PO SCH ×2 (08:22→18:25)
[2022-07-17] MEDS: INSULIN SLIDING SCALE (NOVOLOG) 1 VIAL SQ SCH ×3 (08:31→18:28)
[2022-07-17 09:28] LABS: HEMATOCRIT 37.4 % (32.4-45.2); HEMOGLOBIN 12.4 GM/dL (10.7-15.3); MCHC 33.3 g/dl (32.0-36.0); MEAN CELL VOLUME 93.1 fl (80-96); MEAN PLT VOLUME 8.7 fl (7.5-11.1); PLATELET COUNT 410 10^3/uL (134-434); RBC 4.01 M/mm3 (3.60-5.2); RDW 12.9 % (11.6-15.6); WHITE BLOOD COUNT 6.7 K/mm3 (4.0-10.0)
[2022-07-17] MEDS: PRENATAL VITAMINS W/ FOLIC ACID TABLET (FP) PO SCH (10:07)
[2022-07-17] MEDS: LORATADINE 10 MG TABLET PO SCH (10:07)
[2022-07-17] MEDS: NICOTINE 21 MG/24 HOURS TOPICAL PATCH TD SCH (10:08)
[2022-07-17] MEDS: ACETAMINOPHEN 325 MG TABLET (FP) PO PRN (10:09)
[2022-07-17] MEDS: MAGNESIUM HYDROX 2400MG/30ML ORAL SUSPENSION 30 ML CUP PO PRN (10:11)
[2022-07-17 10:17] LABS: ALBUMIN 2.7 g/dl (3.4-5.0); BLOOD UREA NITROGEN 12.6 mg/dL (7-18); CALCIUM 8.8 mg/dL (8.5-10.1)
[2022-07-17 10:21] LABS: CREATININE 0.6 mg/dL (0.55-1.3)
[2022-07-17 10:22] LABS: BILIRUBIN,TOTAL 0.5 mg/dL (0.2-1); TOT PROT 7.4 g/dl (6.4-8.2)
[2022-07-17] MEDS ORDERED: INSULIN (NOVOLOG) ASPART 100 UNITS/ML 10ML VIAL ONE (17:24)
[2022-07-17] MEDS: MELATONIN 5 MG TABLETS PO SCH (21:31)
[2022-07-17] MEDS: MIRTAZAPINE 15 MG TABLET (FP) PO SCH (21:31)
[2022-07-17] MEDS: THIAMINE HCL 100 MG TABLET (FP) PO SCH (21:31)
[2022-07-17] MEDS: cloNIDine HCL 0.1 MG TABLET PO PRN (22:40)
[2022-07-18] MEDS: GABAPENTIN 100 MG CAPSULE PO SCH ×3 (05:42→22:09)
[2022-07-18] MEDS: hydrOXYzine PAMOATE 25 MG CAPSULE (FP) PO PRN (05:45)
[2022-07-18] MEDS: METHOCARBAMOL 500 MG TABLET PO PRN ×2 (05:45→17:54)
[2022-07-18] MEDS ORDERED: INSULIN (NOVOLOG) ASPART 100 UNITS/ML 10ML VIAL ONE ×2 (08:04→16:39)
[2022-07-18] MEDS: INSULIN SLIDING SCALE (NOVOLOG) 1 VIAL SQ SCH ×3 (08:23→17:49)
[2022-07-18] MEDS: metFORMIN HCL 500 MG TABLET (FP) PO SCH ×2 (08:23→16:47)
[2022-07-18] MEDS ORDERED: methaDONE HCL 10 MG TABLET (FOR DETOX USE ONLY) PO ONE (10:00)
[2022-07-18] MEDS: NICOTINE 21 MG/24 HOURS TOPICAL PATCH TD SCH (10:19)
[2022-07-18] MEDS: PRENATAL VITAMINS W/ FOLIC ACID TABLET (FP) PO SCH (10:19)
[2022-07-18] MEDS: LORATADINE 10 MG TABLET PO SCH (10:19)
[2022-07-18] MEDS: cloNIDine HCL 0.1 MG TABLET PO PRN ×2 (10:21→15:42)
[2022-07-18] MEDS: MELATONIN 5 MG TABLETS PO SCH (22:08)
[2022-07-18] MEDS: THIAMINE HCL 100 MG TABLET (FP) PO SCH (22:08)
[2022-07-18] MEDS: INSULIN (LEVEMIR) 100 UNITS/ML UNITS SQ SCH (22:09)
[2022-07-18] MEDS: guaiFENesin 600 MG TABLET.ER (FP) PO SCH (22:09)
[2022-07-18] MEDS: MIRTAZAPINE 15 MG TABLET (FP) PO SCH (22:09)
[2022-07-18] MEDS: ACETAMINOPHEN 325 MG TABLET (FP) PO PRN (22:10)
[2022-07-18] MEDS: MAGNESIUM HYDROX 2400MG/30ML ORAL SUSPENSION 30 ML CUP PO PRN (22:22)
[2022-07-19] MEDS: GABAPENTIN 100 MG CAPSULE PO SCH ×3 (05:18→22:08)
[2022-07-19] MEDS: METHOCARBAMOL 500 MG TABLET PO PRN ×2 (05:18→18:09)
[2022-07-19] MEDS ORDERED: INSULIN (NOVOLOG) ASPART 100 UNITS/ML 10ML VIAL ONE ×3 (07:37→17:02)
[2022-07-19] MEDS: metFORMIN HCL 500 MG TABLET (FP) PO SCH ×2 (07:44→17:03)
[2022-07-19] MEDS: INSULIN SLIDING SCALE (NOVOLOG) 1 VIAL SQ SCH ×3 (07:44→17:04)
[2022-07-19] MEDS: LORATADINE 10 MG TABLET PO SCH (10:08)
[2022-07-19] MEDS: guaiFENesin 600 MG TABLET.ER (FP) PO SCH ×2 (10:08→22:08)
[2022-07-19] MEDS: ACETAMINOPHEN 325 MG TABLET (FP) PO PRN ×2 (10:09→22:38)
[2022-07-19] MEDS: PRENATAL VITAMINS W/ FOLIC ACID TABLET (FP) PO SCH (10:09)
[2022-07-19] MEDS: NICOTINE 21 MG/24 HOURS TOPICAL PATCH TD SCH (10:10)
[2022-07-19] MEDS: DOCUSATE SODIUM 100 MG CAPSULE (FP) PO SCH ×2 (13:30→22:08)
[2022-07-19] MEDS: NICOTINE 10 MG CARTRIDGE (INHALER) IH PRN (14:00)
[2022-07-19] MEDS: hydrOXYzine PAMOATE 25 MG CAPSULE (FP) PO PRN (18:09)
[2022-07-19] MEDS: MELATONIN 5 MG TABLETS PO SCH (22:07)
[2022-07-19] MEDS: THIAMINE HCL 100 MG TABLET (FP) PO SCH (22:07)
[2022-07-19] MEDS: MIRTAZAPINE 15 MG TABLET (FP) PO SCH (22:08)
[2022-07-19] MEDS: INSULIN (LEVEMIR) 100 UNITS/ML UNITS SQ SCH (22:08)
[2022-07-20] MEDS: DOCUSATE SODIUM 100 MG CAPSULE (FP) PO SCH ×3 (05:29→22:05)
[2022-07-20] MEDS: GABAPENTIN 100 MG CAPSULE PO SCH ×3 (05:30→22:05)
[2022-07-20] MEDS: METHOCARBAMOL 500 MG TABLET PO PRN ×3 (05:31→22:06)
[2022-07-20] MEDS: hydrOXYzine PAMOATE 25 MG CAPSULE (FP) PO PRN ×2 (05:33→17:13)
[2022-07-20] MEDS: INSULIN SLIDING SCALE (NOVOLOG) 1 VIAL SQ SCH ×3 (07:01→17:17)
[2022-07-20] MEDS: metFORMIN HCL 500 MG TABLET (FP) PO SCH ×2 (07:01→17:13)
[2022-07-20] MEDS ORDERED: INSULIN (NOVOLOG) ASPART 100 UNITS/ML 10ML VIAL ONE ×2 (07:05→11:22)
[2022-07-20] MEDS ORDERED: methaDONE HCL 10 MG TABLET (FOR DETOX USE ONLY) PO ONE (10:00)
[2022-07-20] MEDS: PRENATAL VITAMINS W/ FOLIC ACID TABLET (FP) PO SCH (10:07)
[2022-07-20] MEDS: NICOTINE 21 MG/24 HOURS TOPICAL PATCH TD SCH (10:07)
[2022-07-20] MEDS: LORATADINE 10 MG TABLET PO SCH (10:08)
[2022-07-20] MEDS: guaiFENesin 600 MG TABLET.ER (FP) PO SCH ×2 (10:08→22:05)
[2022-07-20] MEDS: NICOTINE 10 MG CARTRIDGE (INHALER) IH PRN (10:11)
[2022-07-20 17:54] VITALS: RESP 18
[2022-07-20] MEDS ORDERED: MELATONIN 5 MG TABLETS PO SCH (19:06)
[2022-07-20 21:32] VITALS: TEMP 97.3
[2022-07-20] MEDS: INSULIN (LEVEMIR) 100 UNITS/ML UNITS SQ SCH (21:53)
[2022-07-20] MEDS: MIRTAZAPINE 15 MG TABLET (FP) PO SCH (22:04)
[2022-07-20] MEDS: THIAMINE HCL 100 MG TABLET (FP) PO SCH (22:04)
[2022-07-21] MEDS: DOCUSATE SODIUM 100 MG CAPSULE (FP) PO SCH (05:59)
[2022-07-21] MEDS: GABAPENTIN 100 MG CAPSULE PO SCH (05:59)
[2022-07-21] MEDS: metFORMIN HCL 500 MG TABLET (FP) PO SCH (05:59)
[2022-07-21] MEDS: INSULIN SLIDING SCALE (NOVOLOG) 1 VIAL SQ SCH ×2 (06:10→11:00)
[2022-07-21] MEDS: hydrOXYzine PAMOATE 25 MG CAPSULE (FP) PO PRN (06:11)
[2022-07-21] MEDS: METHOCARBAMOL 500 MG TABLET PO PRN (06:11)
[2022-07-21] MEDS: PRENATAL VITAMINS W/ FOLIC ACID TABLET (FP) PO SCH (09:16)
[2022-07-21] MEDS: LORATADINE 10 MG TABLET PO SCH (09:16)
[2022-07-21] MEDS: guaiFENesin 600 MG TABLET.ER (FP) PO SCH (09:16)
[2022-07-21] MEDS: ACETAMINOPHEN 325 MG TABLET (FP) PO PRN (09:17)
[2022-07-21] MEDS: NICOTINE 21 MG/24 HOURS TOPICAL PATCH TD SCH (09:19)
[2022-07-21 09:41] VITALS: BP 99/64; PULSE 90
== END 2022-07-21 10:50 | disposition home or self-care (01) | DRG 773 ==
LOC: YASAS 13:59 → Y6N 18:56
PROVIDERS: ADMIT Allergy & Immunology; ATTEND Surgery
PROC: HZ2ZZZZ Detoxification Services for Substance Abuse Treatment (ICD-10-PCS; principal; 2022-07-16)
DX: F11.23 Opioid dependence with withdrawal (principal); F10.230 Alcohol dependence with withdrawal, uncomplicated; F14.20 Cocaine dependence, uncomplicated; F17.210 Nicotine dependence, cigarettes, uncomplicated; F25.0 Schizoaffective disorder, bipolar type; F19.24 Other psychoactive substance dependence with psychoactive substance-induced mood disorder; F32.A Depression, unspecified; E11.65 Type 2 diabetes mellitus with hyperglycemia; E11.42 Type 2 diabetes mellitus with diabetic polyneuropathy; Z79.4 Long term (current) use of insulin; E03.9 Hypothyroidism, unspecified; E55.9 Vitamin D deficiency, unspecified; K59.00 Constipation, unspecified; J45.909 Unspecified asthma, uncomplicated; R09.82 Postnasal drip; Z86.19 Personal history of other infectious and parasitic diseases; Z91.410 Personal history of adult physical and sexual abuse; Z91.199 Patient's noncompliance with other medical treatment and regimen due to unspecified reason
CPT/HCPCS: 36415; 80053; 81025; 82962; 85027; 86780; 93005; 93010; C9803-CS; U0003; U0005

== ENCOUNTER 2022-08-12 13:53 | Inpatient (IN) | payer OTHER ==
[2022-08-12 16:02] VITALS: BMI 19.3
[2022-08-12] MEDS ORDERED: guaiFENesin 200 MG/10 ML 10 ML UNIT-DOSE CUPS PO PRN (16:28)
[2022-08-12] MEDS ORDERED: LOPERAMIDE HCL 2 MG CAPSULE PO PRN (16:28)
[2022-08-12] MEDS ORDERED: IBUPROFEN 400 MG TABLET (FP) PO PRN (16:28)
[2022-08-12] MEDS ORDERED: BENZOCAINE/MENTHOL (CHLORASEPTIC ) LOZENGE MM PRN (16:28)
[2022-08-12] MEDS ORDERED: P-EPHED 60MG/TRIPROLIDI 2.5MG TABLET PO PRN (16:28)
[2022-08-12] MEDS ORDERED: GABAPENTIN 100 MG CAPSULE PO SCH (16:30)
[2022-08-12] MEDS ORDERED: INSULIN SLIDING SCALE (NOVOLOG) 1 VIAL SQ SCH (16:45)
[2022-08-12] MEDS ORDERED: INSULIN (NOVOLOG) ASPART 100 UNITS/ML 10ML VIAL SQ ONE (17:05)
[2022-08-12] MEDS ORDERED: INSULIN (NOVOLOG) ASPART 100 UNITS/ML 10ML VIAL ONE (17:08)
[2022-08-12] MEDS ORDERED: ACETAMINOPHEN 325 MG TABLET (FP) ONE (17:22)
[2022-08-12] MEDS: LORATADINE 10 MG TABLET PO SCH (17:39)
[2022-08-12] MEDS: NICOTINE 7 MG/24 HOURS TOPICAL PATCH TD SCH (17:40)
[2022-08-12] MEDS: PRENATAL VITAMINS W/ FOLIC ACID TABLET (FP) PO SCH (21:18)
[2022-08-12] MEDS: THIAMINE HCL 100 MG TABLET (FP) PO SCH (21:57)
[2022-08-12] MEDS: GABAPENTIN 100 MG CAPSULE PO SCH (21:57)
[2022-08-12] MEDS: DOCUSATE SODIUM 100 MG CAPSULE (FP) PO SCH (21:58)
[2022-08-12] MEDS ORDERED: MELATONIN 5 MG TABLETS PO SCH (22:00)
[2022-08-12] MEDS: INSULIN SLIDING SCALE (NOVOLOG) 1 VIAL SQ SCH (22:03)
[2022-08-12] MEDS: ACETAMINOPHEN 325 MG TABLET (FP) PO PRN (22:08)
[2022-08-12] MEDS: hydrOXYzine PAMOATE 25 MG CAPSULE (FP) PO PRN (22:08)
[2022-08-12] MEDS: MAG HYDROX/AL HYDROX/SIMETH 30 ML UNIT-DOSE CUP PO PRN (22:13)
[2022-08-13] MEDS: DOCUSATE SODIUM 100 MG CAPSULE (FP) PO SCH ×3 (06:21→21:16)
[2022-08-13] MEDS: GABAPENTIN 100 MG CAPSULE PO SCH ×3 (06:21→21:17)
[2022-08-13] MEDS: ACETAMINOPHEN 325 MG TABLET (FP) PO PRN ×3 (06:22→21:17)
[2022-08-13] MEDS: hydrOXYzine PAMOATE 25 MG CAPSULE (FP) PO PRN ×2 (06:23→21:22)
[2022-08-13] MEDS: metFORMIN HCL 500 MG TABLET (FP) PO SCH ×2 (06:24→16:44)
[2022-08-13] MEDS: MAG HYDROX/AL HYDROX/SIMETH 30 ML UNIT-DOSE CUP PO PRN ×2 (06:54→21:22)
[2022-08-13] MEDS ORDERED: METHOCARBAMOL 500 MG TABLET PO SCH ×2 (07:45→22:00)
[2022-08-13] MEDS ORDERED: INSULIN (NOVOLOG) ASPART 100 UNITS/ML 10ML VIAL ONE ×2 (07:47→12:07)
[2022-08-13] MEDS: INSULIN SLIDING SCALE (NOVOLOG) 1 VIAL SQ SCH ×4 (07:50→21:18)
[2022-08-13] MEDS ORDERED: LURASIDONE HCL 20 MG TABLET PO SCH ×2 (10:00→16:00)
[2022-08-13] MEDS: NICOTINE 10 MG CARTRIDGE (INHALER) IH PRN (10:20)
[2022-08-13] MEDS: LORATADINE 10 MG TABLET PO SCH (10:21)
[2022-08-13] MEDS: NICOTINE 7 MG/24 HOURS TOPICAL PATCH TD SCH (10:23)
[2022-08-13] MEDS: PRENATAL VITAMINS W/ FOLIC ACID TABLET (FP) PO SCH (10:23)
[2022-08-13 11:19] LABS: HEMATOCRIT 36.6 % (32.4-45.2); HEMOGLOBIN 12.2 GM/dL (10.7-15.3); MCH 31.9 pg (25.7-33.7); MCHC 33.3 g/dl (32.0-36.0); MEAN CELL VOLUME 95.9 fl (80-96); MEAN PLT VOLUME 8.4 fl (7.5-11.1); PLATELET COUNT 337 10^3/uL (134-434); RBC 3.81 M/mm3 (3.60-5.2); RDW 13.1 % (11.6-15.6); WHITE BLOOD COUNT 6.5 K/mm3 (4.0-10.0)
[2022-08-13 11:32] LABS: CALCIUM 9.6 mg/dL (8.5-10.1)
[2022-08-13 11:33] LABS: ALBUMIN 3.7 g/dl (3.4-5.0); BLOOD UREA NITROGEN 17.2 mg/dL (7-18)
[2022-08-13 11:36] LABS: CREATININE 0.8 mg/dL (0.55-1.3)
[2022-08-13 11:38] LABS: BILIRUBIN,TOTAL 0.6 mg/dL (0.2-1); TOT PROT 8.5 g/dl (6.4-8.2)
[2022-08-13 12:31] LABS: SYPHILIS W/ RPR CONF NON-REACTIVE (NONREACTIVE)
[2022-08-13] MEDS: METHOCARBAMOL 500 MG TABLET PO SCH (13:03)
[2022-08-13 20:30] LABS: EPI CELLS 5 /uL (0-25.1); HYALINE CASTS 0 /uL (0-3.1); URINE APPEARANCE CLEAR; URINE BACTERIA >9,000 /uL (0-1359); URINE BILIRUBIN NEGATIVE (NEGATIVE); URINE COLOR YELLOW; URINE GLUCOSE (UA) 3+ (NEGATIVE); URINE KETONE NEGATIVE (NEGATIVE); URINE LEUK ESTERASE NEGATIVE (NEGATIVE); URINE NITRITE NEGATIVE (NEGATIVE); URINE PROTEIN 1+ (NEGATIVE); URINE RBC 19 /uL (0-23.9); URINE WBC 12 /uL (0-25.8)
[2022-08-13] MEDS: LURASIDONE HCL 20 MG TABLET PO SCH (20:45)
[2022-08-13] MEDS: THIAMINE HCL 100 MG TABLET (FP) PO SCH (21:17)
[2022-08-13] MEDS: MIRTAZAPINE 30 MG TABLET PO SCH (21:17)
[2022-08-14] MEDS: DOCUSATE SODIUM 100 MG CAPSULE (FP) PO SCH ×3 (05:40→21:54)
[2022-08-14] MEDS: GABAPENTIN 100 MG CAPSULE PO SCH ×3 (05:40→21:55)
[2022-08-14] MEDS: ACETAMINOPHEN 325 MG TABLET (FP) PO PRN ×3 (05:41→21:59)
[2022-08-14] MEDS: MAG HYDROX/AL HYDROX/SIMETH 30 ML UNIT-DOSE CUP PO PRN (05:44)
[2022-08-14] MEDS: metFORMIN HCL 500 MG TABLET (FP) PO SCH ×2 (07:13→17:09)
[2022-08-14] MEDS: INSULIN SLIDING SCALE (NOVOLOG) 1 VIAL SQ SCH ×4 (07:16→22:00)
[2022-08-14] MEDS: PRENATAL VITAMINS W/ FOLIC ACID TABLET (FP) PO SCH (09:52)
[2022-08-14] MEDS: METHOCARBAMOL 500 MG TABLET PO SCH ×3 (09:53→21:54)
[2022-08-14] MEDS: LORATADINE 10 MG TABLET PO SCH (09:53)
[2022-08-14] MEDS: NICOTINE 7 MG/24 HOURS TOPICAL PATCH TD SCH (09:55)
[2022-08-14] MEDS: FLUTICASONE PROP 0.05% 16 GM NASAL SPRAY NS SCH (12:02)
[2022-08-14] MEDS ORDERED: INSULIN (NOVOLOG) ASPART 100 UNITS/ML 10ML VIAL ONE ×2 (12:04→17:08)
[2022-08-14] MEDS: PANTOPRAZOLE 40 MG TABLET PO SCH (15:04)
[2022-08-14] MEDS: hydrOXYzine PAMOATE 25 MG CAPSULE (FP) PO PRN (16:26)
[2022-08-14] MEDS: LURASIDONE HCL 20 MG TABLET PO SCH (18:02)
[2022-08-14] MEDS: THIAMINE HCL 100 MG TABLET (FP) PO SCH (21:54)
[2022-08-14] MEDS: ATORVASTATIN CA 10 MG TABLET (FP) PO SCH (21:55)
[2022-08-14] MEDS: MIRTAZAPINE 30 MG TABLET PO SCH (21:55)
[2022-08-14] MEDS ORDERED: INSULIN (LEVEMIR) 100 UNITS/ML UNITS SQ SCH (22:00)
[2022-08-15] MEDS: DOCUSATE SODIUM 100 MG CAPSULE (FP) PO SCH ×3 (05:59→22:02)
[2022-08-15] MEDS: ACETAMINOPHEN 325 MG TABLET (FP) PO PRN ×2 (05:59→22:03)
[2022-08-15] MEDS: GABAPENTIN 100 MG CAPSULE PO SCH ×3 (05:59→22:00)
[2022-08-15] MEDS: INSULIN SLIDING SCALE (NOVOLOG) 1 VIAL SQ SCH ×4 (06:02→22:08)
[2022-08-15] MEDS: metFORMIN HCL 500 MG TABLET (FP) PO SCH ×2 (07:59→16:46)
[2022-08-15] MEDS: PRENATAL VITAMINS W/ FOLIC ACID TABLET (FP) PO SCH (10:09)
[2022-08-15] MEDS: LORATADINE 10 MG TABLET PO SCH (10:10)
[2022-08-15] MEDS: PANTOPRAZOLE 40 MG TABLET PO SCH (10:10)
[2022-08-15] MEDS: NICOTINE 7 MG/24 HOURS TOPICAL PATCH TD SCH (10:10)
[2022-08-15] MEDS: METHOCARBAMOL 500 MG TABLET PO SCH ×2 (10:10→22:02)
[2022-08-15] MEDS: FLUTICASONE PROP 0.05% 16 GM NASAL SPRAY NS SCH (10:10)
[2022-08-15] MEDS: NICOTINE 10 MG CARTRIDGE (INHALER) IH PRN (10:11)
[2022-08-15] MEDS: MAGNESIUM HYDROX 2400MG/30ML ORAL SUSPENSION 30 ML CUP PO PRN (10:14)
[2022-08-15] MEDS ORDERED: INSULIN (NOVOLOG) ASPART 100 UNITS/ML 10ML VIAL ONE (11:53)
[2022-08-15] MEDS: LURASIDONE HCL 20 MG TABLET PO SCH (17:36)
[2022-08-15] MEDS: ATORVASTATIN CA 10 MG TABLET (FP) PO SCH (22:01)
[2022-08-15] MEDS: MIRTAZAPINE 30 MG TABLET PO SCH (22:01)
[2022-08-15] MEDS: THIAMINE HCL 100 MG TABLET (FP) PO SCH (22:01)
[2022-08-15] MEDS: hydrOXYzine PAMOATE 25 MG CAPSULE (FP) PO PRN (22:04)
[2022-08-15] MEDS: INSULIN (LEVEMIR) 100 UNITS/ML UNITS SQ SCH (22:06)
[2022-08-16] MEDS: ACETAMINOPHEN 325 MG TABLET (FP) PO PRN ×3 (04:04→21:31)
[2022-08-16] MEDS: MAGNESIUM HYDROX 2400MG/30ML ORAL SUSPENSION 30 ML CUP PO PRN (06:07)
[2022-08-16] MEDS: GABAPENTIN 100 MG CAPSULE PO SCH ×3 (06:07→21:31)
[2022-08-16] MEDS: metFORMIN HCL 500 MG TABLET (FP) PO SCH ×2 (06:07→16:33)
[2022-08-16] MEDS: DOCUSATE SODIUM 100 MG CAPSULE (FP) PO SCH ×3 (06:07→21:31)
[2022-08-16] MEDS: hydrOXYzine PAMOATE 25 MG CAPSULE (FP) PO PRN ×2 (06:08→21:34)
[2022-08-16] MEDS: INSULIN SLIDING SCALE (NOVOLOG) 1 VIAL SQ SCH ×4 (06:18→21:29)
[2022-08-16] MEDS: LORATADINE 10 MG TABLET PO SCH (10:29)
[2022-08-16] MEDS: FLUTICASONE PROP 0.05% 16 GM NASAL SPRAY NS SCH (10:29)
[2022-08-16] MEDS: PANTOPRAZOLE 40 MG TABLET PO SCH (10:30)
[2022-08-16] MEDS: PRENATAL VITAMINS W/ FOLIC ACID TABLET (FP) PO SCH (10:30)
[2022-08-16] MEDS: NICOTINE 7 MG/24 HOURS TOPICAL PATCH TD SCH (10:30)
[2022-08-16] MEDS: METHOCARBAMOL 500 MG TABLET PO SCH ×2 (10:31→21:31)
[2022-08-16] MEDS ORDERED: INSULIN (NOVOLOG) ASPART 100 UNITS/ML 10ML VIAL ONE ×2 (11:47→16:32)
[2022-08-16] MEDS: TOLNAFTATE 1% CREAM 15 GM TUBE TP SCH ×2 (11:48→21:37)
[2022-08-16] MEDS ORDERED: DOCUSATE SODIUM 100 MG CAPSULE (FP) PO SCH (15:36)
[2022-08-16] MEDS: LURASIDONE HCL 20 MG TABLET PO SCH (18:01)
[2022-08-16] MEDS: INSULIN (LEVEMIR) 100 UNITS/ML UNITS SQ SCH (21:28)
[2022-08-16] MEDS: ATORVASTATIN CA 10 MG TABLET (FP) PO SCH (21:31)
[2022-08-16] MEDS: MIRTAZAPINE 30 MG TABLET PO SCH (21:31)
[2022-08-16] MEDS: THIAMINE HCL 100 MG TABLET (FP) PO SCH (21:33)
[2022-08-17] MEDS: metFORMIN HCL 500 MG TABLET (FP) PO SCH ×2 (06:09→16:35)
[2022-08-17] MEDS: ACETAMINOPHEN 325 MG TABLET (FP) PO PRN ×3 (06:09→21:04)
[2022-08-17] MEDS: GABAPENTIN 100 MG CAPSULE PO SCH ×3 (06:09→21:01)
[2022-08-17] MEDS: DOCUSATE SODIUM 100 MG CAPSULE (FP) PO SCH ×3 (06:09→21:02)
[2022-08-17] MEDS ORDERED: INSULIN (NOVOLOG) ASPART 100 UNITS/ML 10ML VIAL ONE ×2 (06:13→16:30)
[2022-08-17] MEDS: INSULIN SLIDING SCALE (NOVOLOG) 1 VIAL SQ SCH ×4 (06:14→21:05)
[2022-08-17] MEDS: POLYETHYLENE GLYCOL (HEALTHYLAX) 3350 17 GM PACKET PO PRN (09:49)
[2022-08-17] MEDS: LORATADINE 10 MG TABLET PO SCH (09:51)
[2022-08-17] MEDS: PRENATAL VITAMINS W/ FOLIC ACID TABLET (FP) PO SCH (09:51)
[2022-08-17] MEDS: PANTOPRAZOLE 40 MG TABLET PO SCH (09:51)
[2022-08-17] MEDS: METHOCARBAMOL 500 MG TABLET PO SCH ×2 (09:51→21:01)
[2022-08-17] MEDS: NICOTINE 7 MG/24 HOURS TOPICAL PATCH TD SCH (09:52)
[2022-08-17] MEDS: TOLNAFTATE 1% CREAM 15 GM TUBE TP SCH ×2 (09:52→21:37)
[2022-08-17] MEDS: FLUTICASONE PROP 0.05% 16 GM NASAL SPRAY NS SCH (09:55)
[2022-08-17] MEDS: NICOTINE 10 MG CARTRIDGE (INHALER) IH PRN (13:06)
[2022-08-17] MEDS: hydrOXYzine PAMOATE 25 MG CAPSULE (FP) PO PRN ×2 (13:49→21:04)
[2022-08-17] MEDS: LURASIDONE HCL 20 MG TABLET PO SCH (17:36)
[2022-08-17] MEDS: ATORVASTATIN CA 10 MG TABLET (FP) PO SCH (21:01)
[2022-08-17] MEDS: MIRTAZAPINE 30 MG TABLET PO SCH (21:01)
[2022-08-17] MEDS: THIAMINE HCL 100 MG TABLET (FP) PO SCH (21:02)
[2022-08-17] MEDS: BISACODYL 5 MG TABLET.DR (FP) PO PRN (21:02)
[2022-08-17] MEDS: INSULIN (LEVEMIR) 100 UNITS/ML UNITS SQ SCH (21:05)
[2022-08-18] MEDS: hydrOXYzine PAMOATE 25 MG CAPSULE (FP) PO PRN ×2 (05:59→21:31)
[2022-08-18] MEDS: ACETAMINOPHEN 325 MG TABLET (FP) PO PRN ×3 (05:59→21:32)
[2022-08-18] MEDS: GABAPENTIN 100 MG CAPSULE PO SCH ×3 (05:59→21:30)
[2022-08-18] MEDS: DOCUSATE SODIUM 100 MG CAPSULE (FP) PO SCH ×3 (05:59→21:30)
[2022-08-18] MEDS: metFORMIN HCL 500 MG TABLET (FP) PO SCH ×2 (05:59→16:49)
[2022-08-18] MEDS: INSULIN SLIDING SCALE (NOVOLOG) 1 VIAL SQ SCH ×4 (06:02→21:29)
[2022-08-18] MEDS ORDERED: INSULIN (NOVOLOG) ASPART 100 UNITS/ML 10ML VIAL ONE ×2 (06:02→11:47)
[2022-08-18] MEDS: PANTOPRAZOLE 40 MG TABLET PO SCH (10:05)
[2022-08-18] MEDS: PRENATAL VITAMINS W/ FOLIC ACID TABLET (FP) PO SCH (10:06)
[2022-08-18] MEDS: LORATADINE 10 MG TABLET PO SCH (10:06)
[2022-08-18] MEDS: METHOCARBAMOL 500 MG TABLET PO SCH ×2 (10:06→21:30)
[2022-08-18] MEDS: NICOTINE 7 MG/24 HOURS TOPICAL PATCH TD SCH (10:06)
[2022-08-18] MEDS: TOLNAFTATE 1% CREAM 15 GM TUBE TP SCH ×2 (10:06→22:11)
[2022-08-18] MEDS: FLUTICASONE PROP 0.05% 16 GM NASAL SPRAY NS SCH (10:09)
[2022-08-18] MEDS: LURASIDONE HCL 20 MG TABLET PO SCH (17:53)
[2022-08-18] MEDS: INSULIN (LEVEMIR) 100 UNITS/ML UNITS SQ SCH (21:29)
[2022-08-18] MEDS: THIAMINE HCL 100 MG TABLET (FP) PO SCH (21:30)
[2022-08-18] MEDS: ATORVASTATIN CA 10 MG TABLET (FP) PO SCH (21:30)
[2022-08-18] MEDS: MIRTAZAPINE 30 MG TABLET PO SCH (21:31)
[2022-08-18] MEDS: BISACODYL 5 MG TABLET.DR (FP) PO PRN (21:33)
[2022-08-19] MEDS ORDERED: INSULIN (NOVOLOG) ASPART 100 UNITS/ML 10ML VIAL ONE ×3 (04:32→22:39)
[2022-08-19] MEDS: metFORMIN HCL 500 MG TABLET (FP) PO SCH ×2 (06:07→16:52)
[2022-08-19] MEDS: DOCUSATE SODIUM 100 MG CAPSULE (FP) PO SCH ×3 (06:07→22:00)
[2022-08-19] MEDS: GABAPENTIN 100 MG CAPSULE PO SCH ×3 (06:07→22:00)
[2022-08-19] MEDS: ACETAMINOPHEN 325 MG TABLET (FP) PO PRN ×3 (06:08→22:01)
[2022-08-19] MEDS: INSULIN SLIDING SCALE (NOVOLOG) 1 VIAL SQ SCH ×4 (06:09→21:17)
[2022-08-19] MEDS: NICOTINE 10 MG CARTRIDGE (INHALER) IH PRN (07:20)
[2022-08-19] MEDS: LORATADINE 10 MG TABLET PO SCH (10:05)
[2022-08-19] MEDS: FLUTICASONE PROP 0.05% 16 GM NASAL SPRAY NS SCH (10:05)
[2022-08-19] MEDS: PANTOPRAZOLE 40 MG TABLET PO SCH (10:05)
[2022-08-19] MEDS: PRENATAL VITAMINS W/ FOLIC ACID TABLET (FP) PO SCH (10:05)
[2022-08-19] MEDS: NICOTINE 7 MG/24 HOURS TOPICAL PATCH TD SCH (10:06)
[2022-08-19] MEDS: METHOCARBAMOL 500 MG TABLET PO SCH ×2 (10:06→18:02)
[2022-08-19] MEDS: TOLNAFTATE 1% CREAM 15 GM TUBE TP SCH ×2 (10:06→22:23)
[2022-08-19] MEDS: POLYETHYLENE GLYCOL (HEALTHYLAX) 3350 17 GM PACKET PO PRN (10:09)
[2022-08-19] MEDS: LURASIDONE HCL 20 MG TABLET PO SCH (18:02)
[2022-08-19] MEDS: INSULIN (LEVEMIR) 100 UNITS/ML UNITS SQ SCH (21:17)
[2022-08-19] MEDS: MIRTAZAPINE 30 MG TABLET PO SCH (22:00)
[2022-08-19] MEDS: ATORVASTATIN CA 10 MG TABLET (FP) PO SCH (22:00)
[2022-08-19] MEDS: THIAMINE HCL 100 MG TABLET (FP) PO SCH (22:00)
[2022-08-19] MEDS ORDERED: METHOCARBAMOL 500 MG TABLET PO SCH (22:00)
[2022-08-19] MEDS: BISACODYL 5 MG TABLET.DR (FP) PO PRN (22:02)
[2022-08-19] MEDS: hydrOXYzine PAMOATE 25 MG CAPSULE (FP) PO PRN (22:02)
[2022-08-20] MEDS: GABAPENTIN 100 MG CAPSULE PO SCH ×3 (06:07→21:59)
[2022-08-20] MEDS: METHOCARBAMOL 500 MG TABLET PO SCH ×2 (06:07→17:54)
[2022-08-20] MEDS: DOCUSATE SODIUM 100 MG CAPSULE (FP) PO SCH ×3 (06:08→21:59)
[2022-08-20] MEDS: metFORMIN HCL 500 MG TABLET (FP) PO SCH ×2 (06:08→16:48)
[2022-08-20] MEDS: ACETAMINOPHEN 325 MG TABLET (FP) PO PRN ×3 (06:09→22:04)
[2022-08-20] MEDS ORDERED: INSULIN (NOVOLOG) ASPART 100 UNITS/ML 10ML VIAL ONE ×2 (06:12→11:52)
[2022-08-20] MEDS: INSULIN SLIDING SCALE (NOVOLOG) 1 VIAL SQ SCH ×4 (06:13→22:08)
[2022-08-20 07:23] VITALS: RESP 18
[2022-08-20] MEDS: PRENATAL VITAMINS W/ FOLIC ACID TABLET (FP) PO SCH (10:35)
[2022-08-20] MEDS: TOLNAFTATE 1% CREAM 15 GM TUBE TP SCH ×2 (10:36→22:17)
[2022-08-20] MEDS: PANTOPRAZOLE 40 MG TABLET PO SCH (10:36)
[2022-08-20] MEDS: LORATADINE 10 MG TABLET PO SCH (10:36)
[2022-08-20] MEDS: FLUTICASONE PROP 0.05% 16 GM NASAL SPRAY NS SCH (10:36)
[2022-08-20] MEDS: NICOTINE 7 MG/24 HOURS TOPICAL PATCH TD SCH (10:36)
[2022-08-20] MEDS: POLYETHYLENE GLYCOL (HEALTHYLAX) 3350 17 GM PACKET PO PRN (10:38)
[2022-08-20] MEDS: LURASIDONE HCL 20 MG TABLET PO SCH (17:54)
[2022-08-20] MEDS: ATORVASTATIN CA 10 MG TABLET (FP) PO SCH (21:59)
[2022-08-20] MEDS: MIRTAZAPINE 30 MG TABLET PO SCH (21:59)
[2022-08-20] MEDS: THIAMINE HCL 100 MG TABLET (FP) PO SCH (21:59)
[2022-08-20] MEDS: BISACODYL 5 MG TABLET.DR (FP) PO PRN (22:03)
[2022-08-20] MEDS: hydrOXYzine PAMOATE 25 MG CAPSULE (FP) PO PRN (22:04)
[2022-08-20] MEDS: INSULIN (LEVEMIR) 100 UNITS/ML UNITS SQ SCH (22:05)
[2022-08-21] MEDS: DOCUSATE SODIUM 100 MG CAPSULE (FP) PO SCH ×3 (06:15→22:05)
[2022-08-21] MEDS: metFORMIN HCL 500 MG TABLET (FP) PO SCH ×2 (06:15→17:04)
[2022-08-21] MEDS: GABAPENTIN 100 MG CAPSULE PO SCH ×3 (06:15→22:06)
[2022-08-21] MEDS: ACETAMINOPHEN 325 MG TABLET (FP) PO PRN ×4 (06:16→22:09)
[2022-08-21] MEDS ORDERED: INSULIN (NOVOLOG) ASPART 100 UNITS/ML 10ML VIAL ONE ×2 (06:18→11:54)
[2022-08-21] MEDS: INSULIN SLIDING SCALE (NOVOLOG) 1 VIAL SQ SCH ×4 (07:05→22:06)
[2022-08-21] MEDS: NICOTINE 10 MG CARTRIDGE (INHALER) IH PRN (07:09)
[2022-08-21] MEDS: LORATADINE 10 MG TABLET PO SCH (10:25)
[2022-08-21] MEDS: FLUTICASONE PROP 0.05% 16 GM NASAL SPRAY NS SCH (10:25)
[2022-08-21] MEDS: TOLNAFTATE 1% CREAM 15 GM TUBE TP SCH ×2 (10:25→22:07)
[2022-08-21] MEDS: PANTOPRAZOLE 40 MG TABLET PO SCH (10:25)
[2022-08-21] MEDS: NICOTINE 7 MG/24 HOURS TOPICAL PATCH TD SCH (10:26)
[2022-08-21] MEDS: PRENATAL VITAMINS W/ FOLIC ACID TABLET (FP) PO SCH (10:26)
[2022-08-21] MEDS: POLYETHYLENE GLYCOL (HEALTHYLAX) 3350 17 GM PACKET PO PRN (10:28)
[2022-08-21] MEDS: METHOCARBAMOL 500 MG TABLET PO PRN ×2 (11:57→22:15)
[2022-08-21] MEDS: LURASIDONE HCL 20 MG TABLET PO SCH (18:22)
[2022-08-21] MEDS: THIAMINE HCL 100 MG TABLET (FP) PO SCH (22:05)
[2022-08-21] MEDS: ATORVASTATIN CA 10 MG TABLET (FP) PO SCH (22:05)
[2022-08-21] MEDS: MIRTAZAPINE 30 MG TABLET PO SCH (22:05)
[2022-08-21] MEDS: INSULIN (LEVEMIR) 100 UNITS/ML UNITS SQ SCH (22:07)
[2022-08-21] MEDS: hydrOXYzine PAMOATE 25 MG CAPSULE (FP) PO PRN (22:12)
[2022-08-22] MEDS: ACETAMINOPHEN 325 MG TABLET (FP) PO PRN ×5 (03:26→22:07)
[2022-08-22] MEDS: DOCUSATE SODIUM 100 MG CAPSULE (FP) PO SCH ×3 (06:45→22:04)
[2022-08-22] MEDS: GABAPENTIN 100 MG CAPSULE PO SCH ×3 (06:45→22:05)
[2022-08-22] MEDS: metFORMIN HCL 500 MG TABLET (FP) PO SCH ×2 (06:46→17:07)
[2022-08-22] MEDS: INSULIN SLIDING SCALE (NOVOLOG) 1 VIAL SQ SCH ×4 (06:50→22:09)
[2022-08-22] MEDS ORDERED: INSULIN (NOVOLOG) ASPART 100 UNITS/ML 10ML VIAL ONE ×2 (07:36→11:47)
[2022-08-22] MEDS: LORATADINE 10 MG TABLET PO SCH (10:01)
[2022-08-22] MEDS: TOLNAFTATE 1% CREAM 15 GM TUBE TP SCH ×2 (10:01→22:07)
[2022-08-22] MEDS: PANTOPRAZOLE 40 MG TABLET PO SCH (10:01)
[2022-08-22] MEDS: NICOTINE 7 MG/24 HOURS TOPICAL PATCH TD SCH (10:02)
[2022-08-22] MEDS: PRENATAL VITAMINS W/ FOLIC ACID TABLET (FP) PO SCH (10:02)
[2022-08-22] MEDS: FLUTICASONE PROP 0.05% 16 GM NASAL SPRAY NS SCH (10:02)
[2022-08-22] MEDS: POLYETHYLENE GLYCOL (HEALTHYLAX) 3350 17 GM PACKET PO PRN (10:05)
[2022-08-22] MEDS: LURASIDONE HCL 20 MG TABLET PO SCH (18:17)
[2022-08-22] MEDS: MIRTAZAPINE 30 MG TABLET PO SCH (22:05)
[2022-08-22] MEDS: THIAMINE HCL 100 MG TABLET (FP) PO SCH (22:05)
[2022-08-22] MEDS: ATORVASTATIN CA 10 MG TABLET (FP) PO SCH (22:06)
[2022-08-22] MEDS: METHOCARBAMOL 500 MG TABLET PO PRN (22:06)
[2022-08-22] MEDS: BISACODYL 5 MG TABLET.DR (FP) PO PRN (22:07)
[2022-08-22] MEDS: INSULIN (LEVEMIR) 100 UNITS/ML UNITS SQ SCH (22:37)
[2022-08-23] MEDS: DOCUSATE SODIUM 100 MG CAPSULE (FP) PO SCH ×3 (06:59→22:10)
[2022-08-23] MEDS: metFORMIN HCL 500 MG TABLET (FP) PO SCH ×2 (06:59→17:11)
[2022-08-23] MEDS: GABAPENTIN 100 MG CAPSULE PO SCH ×3 (06:59→22:11)
[2022-08-23] MEDS: ACETAMINOPHEN 325 MG TABLET (FP) PO PRN ×3 (07:00→22:17)
[2022-08-23] MEDS: INSULIN SLIDING SCALE (NOVOLOG) 1 VIAL SQ SCH ×4 (07:02→22:11)
[2022-08-23] MEDS: NICOTINE 10 MG CARTRIDGE (INHALER) IH PRN (07:18)
[2022-08-23] MEDS: FLUTICASONE PROP 0.05% 16 GM NASAL SPRAY NS SCH (10:21)
[2022-08-23] MEDS: POLYETHYLENE GLYCOL (HEALTHYLAX) 3350 17 GM PACKET PO PRN (10:21)
[2022-08-23] MEDS: LORATADINE 10 MG TABLET PO SCH (10:21)
[2022-08-23] MEDS: NICOTINE 7 MG/24 HOURS TOPICAL PATCH TD SCH (10:21)
[2022-08-23] MEDS: PANTOPRAZOLE 40 MG TABLET PO SCH (10:21)
[2022-08-23] MEDS: PRENATAL VITAMINS W/ FOLIC ACID TABLET (FP) PO SCH (10:22)
[2022-08-23] MEDS: TOLNAFTATE 1% CREAM 15 GM TUBE TP SCH ×2 (10:22→22:12)
[2022-08-23] MEDS ORDERED: INSULIN (NOVOLOG) ASPART 100 UNITS/ML 10ML VIAL ONE ×2 (11:48→17:07)
[2022-08-23] MEDS: LURASIDONE HCL 20 MG TABLET PO SCH (18:08)
[2022-08-23] MEDS: THIAMINE HCL 100 MG TABLET (FP) PO SCH (22:10)
[2022-08-23] MEDS: MIRTAZAPINE 30 MG TABLET PO SCH (22:10)
[2022-08-23] MEDS: ATORVASTATIN CA 10 MG TABLET (FP) PO SCH (22:10)
[2022-08-23] MEDS: INSULIN (LEVEMIR) 100 UNITS/ML UNITS SQ SCH (22:11)
[2022-08-23] MEDS: BISACODYL 5 MG TABLET.DR (FP) PO PRN (22:16)
[2022-08-23] MEDS: METHOCARBAMOL 500 MG TABLET PO PRN (22:17)
[2022-08-24] MEDS: GABAPENTIN 100 MG CAPSULE PO SCH ×3 (06:00→21:44)
[2022-08-24] MEDS: DOCUSATE SODIUM 100 MG CAPSULE (FP) PO SCH ×3 (06:00→21:44)
[2022-08-24] MEDS: metFORMIN HCL 500 MG TABLET (FP) PO SCH ×2 (06:00→16:41)
[2022-08-24] MEDS: ACETAMINOPHEN 325 MG TABLET (FP) PO PRN ×2 (06:02→21:48)
[2022-08-24] MEDS ORDERED: INSULIN (NOVOLOG) ASPART 100 UNITS/ML 10ML VIAL ONE ×3 (06:03→21:59)
[2022-08-24] MEDS: INSULIN SLIDING SCALE (NOVOLOG) 1 VIAL SQ SCH ×4 (06:04→21:50)
[2022-08-24] MEDS: PANTOPRAZOLE 40 MG TABLET PO SCH (10:19)
[2022-08-24] MEDS: LORATADINE 10 MG TABLET PO SCH (10:19)
[2022-08-24] MEDS: NICOTINE 7 MG/24 HOURS TOPICAL PATCH TD SCH (10:19)
[2022-08-24] MEDS: FLUTICASONE PROP 0.05% 16 GM NASAL SPRAY NS SCH (10:20)
[2022-08-24] MEDS: TOLNAFTATE 1% CREAM 15 GM TUBE TP SCH ×2 (10:20→21:49)
[2022-08-24] MEDS: PRENATAL VITAMINS W/ FOLIC ACID TABLET (FP) PO SCH (10:20)
[2022-08-24] MEDS: POLYETHYLENE GLYCOL (HEALTHYLAX) 3350 17 GM PACKET PO PRN (10:23)
[2022-08-24] MEDS: METHOCARBAMOL 500 MG TABLET PO PRN (11:54)
[2022-08-24] MEDS: LURASIDONE HCL 20 MG TABLET PO SCH (17:35)
[2022-08-24] MEDS: ATORVASTATIN CA 10 MG TABLET (FP) PO SCH (21:43)
[2022-08-24] MEDS: MIRTAZAPINE 30 MG TABLET PO SCH (21:44)
[2022-08-24] MEDS: BISACODYL 5 MG TABLET.DR (FP) PO PRN (21:44)
[2022-08-24] MEDS: hydrOXYzine PAMOATE 25 MG CAPSULE (FP) PO PRN (21:45)
[2022-08-24] MEDS: THIAMINE HCL 100 MG TABLET (FP) PO SCH (21:45)
[2022-08-24] MEDS: INSULIN (LEVEMIR) 100 UNITS/ML UNITS SQ SCH (21:51)
[2022-08-25] MEDS ORDERED: INSULIN (NOVOLOG) ASPART 100 UNITS/ML 10ML VIAL ONE ×3 (03:20→16:32)
[2022-08-25] MEDS: DOCUSATE SODIUM 100 MG CAPSULE (FP) PO SCH ×3 (06:39→21:48)
[2022-08-25] MEDS: metFORMIN HCL 500 MG TABLET (FP) PO SCH ×2 (06:39→16:46)
[2022-08-25] MEDS: GABAPENTIN 100 MG CAPSULE PO SCH ×3 (06:39→21:47)
[2022-08-25] MEDS: ACETAMINOPHEN 325 MG TABLET (FP) PO PRN ×3 (06:40→16:47)
[2022-08-25] MEDS: INSULIN SLIDING SCALE (NOVOLOG) 1 VIAL SQ SCH ×4 (06:43→21:48)
[2022-08-25 06:56] VITALS: TEMP 98
[2022-08-25] MEDS: FLUTICASONE PROP 0.05% 16 GM NASAL SPRAY NS SCH (10:17)
[2022-08-25] MEDS: PANTOPRAZOLE 40 MG TABLET PO SCH (10:18)
[2022-08-25] MEDS: LORATADINE 10 MG TABLET PO SCH (10:18)
[2022-08-25] MEDS: PRENATAL VITAMINS W/ FOLIC ACID TABLET (FP) PO SCH (10:18)
[2022-08-25] MEDS: NICOTINE 7 MG/24 HOURS TOPICAL PATCH TD SCH (10:18)
[2022-08-25] MEDS: POLYETHYLENE GLYCOL (HEALTHYLAX) 3350 17 GM PACKET PO PRN (10:21)
[2022-08-25] MEDS: TOLNAFTATE 1% CREAM 15 GM TUBE TP SCH ×2 (11:01→21:57)
[2022-08-25] MEDS: NICOTINE 10 MG CARTRIDGE (INHALER) IH PRN (14:08)
[2022-08-25] MEDS: hydrOXYzine PAMOATE 25 MG CAPSULE (FP) PO PRN ×2 (16:47→21:51)
[2022-08-25] MEDS: LURASIDONE HCL 20 MG TABLET PO SCH (17:52)
[2022-08-25] MEDS: BISACODYL 5 MG TABLET.DR (FP) PO PRN (21:46)
[2022-08-25] MEDS: THIAMINE HCL 100 MG TABLET (FP) PO SCH (21:46)
[2022-08-25] MEDS: MIRTAZAPINE 30 MG TABLET PO SCH (21:47)
[2022-08-25] MEDS: METHOCARBAMOL 500 MG TABLET PO PRN (21:47)
[2022-08-25] MEDS: ATORVASTATIN CA 10 MG TABLET (FP) PO SCH (21:48)
[2022-08-25] MEDS: INSULIN (LEVEMIR) 100 UNITS/ML UNITS SQ SCH (21:49)
[2022-08-25] MEDS: MAG HYDROX/AL HYDROX/SIMETH 30 ML UNIT-DOSE CUP PO PRN (21:52)
[2022-08-26] MEDS: DOCUSATE SODIUM 100 MG CAPSULE (FP) PO SCH (06:26)
[2022-08-26] MEDS: METHOCARBAMOL 500 MG TABLET PO PRN (06:26)
[2022-08-26] MEDS: metFORMIN HCL 500 MG TABLET (FP) PO SCH (06:26)
[2022-08-26] MEDS: GABAPENTIN 100 MG CAPSULE PO SCH (06:27)
[2022-08-26] MEDS ORDERED: INSULIN (NOVOLOG) ASPART 100 UNITS/ML 10ML VIAL ONE (06:32)
[2022-08-26] MEDS: INSULIN SLIDING SCALE (NOVOLOG) 1 VIAL SQ SCH (06:33)
[2022-08-26 07:32] VITALS: BP 122/66; PULSE 92
[2022-08-26] MEDS: PRENATAL VITAMINS W/ FOLIC ACID TABLET (FP) PO SCH (09:44)
[2022-08-26] MEDS: NICOTINE 7 MG/24 HOURS TOPICAL PATCH TD SCH (09:44)
[2022-08-26] MEDS: LORATADINE 10 MG TABLET PO SCH (09:45)
[2022-08-26] MEDS: PANTOPRAZOLE 40 MG TABLET PO SCH (09:45)
[2022-08-26] MEDS: FLUTICASONE PROP 0.05% 16 GM NASAL SPRAY NS SCH (09:45)
[2022-08-26] MEDS: TOLNAFTATE 1% CREAM 15 GM TUBE TP SCH (09:46)
== END 2022-08-26 10:05 | disposition home or self-care (01) | DRG 772 ==
LOC: YASAS 13:53 → Y5N 18:17
PROVIDERS: ADMIT Allergy & Immunology; ATTEND Allergy & Immunology
PROC: HZ42ZZZ Group Counseling for Substance Abuse Treatment, Cognitive-Behavioral (ICD-10-PCS; principal; 2022-08-12)
DX: F10.20 Alcohol dependence, uncomplicated (principal); F14.20 Cocaine dependence, uncomplicated; F17.210 Nicotine dependence, cigarettes, uncomplicated; F19.280 Other psychoactive substance dependence with psychoactive substance-induced anxiety disorder; F19.282 Other psychoactive substance dependence with psychoactive substance-induced sleep disorder; F31.9 Bipolar disorder, unspecified; E78.5 Hyperlipidemia, unspecified; B35.3 Tinea pedis; K59.01 Slow transit constipation; E11.42 Type 2 diabetes mellitus with diabetic polyneuropathy; Z79.4 Long term (current) use of insulin; Z62.810 Personal history of physical and sexual abuse in childhood; Z91.410 Personal history of adult physical and sexual abuse; Z86.19 Personal history of other infectious and parasitic diseases
CPT/HCPCS: 36415; 80053; 81003; 82962; 85027; 86780; 86803; C9803-CS; U0003; U0005